=== PATIENT | male | born 1995 | race Two or more races ===

== ENCOUNTER 2025-04-01 13:33 | Inpatient (IN) | payer MEDICAID, SELFPAY ==
[2025-04-01] VITALS (10 sets, daily range): BP systolic 131–171; BP diastolic 72–117; PULSE 83–110; RESP 17–35; TEMP 36.7–37.7; O2SAT 96–100; BMI 29.0
--- NOTE | 2025-04-01 13:36 | PD.EDNEURO ---
Neuro Symptoms Deficit-RME/HPI General Chief Complaint: Neuro Symptoms/Deficit Stated Complaint: BODY NUMBNESS Time Seen by Provider: 04/01/25 18:19 Arrival date/time: 04/01/25 13:33 Limitations: altered mental status RME / HPI RME / HPI Narrative: DR. GARCIA MAIN ED EVALUATION: 29-year-old male brought in by EMS from home and EMS states they received the call with an initial complaint of vomiting since this morning; however, when they arrived on scene the patient complained of new-onset inability to move his body after vaping at 10 AM. He states the vape was obtained from friends. EMS reported normal blood glucose. No trauma, paitent was found in bed; no cough, congestion, dysuria, or recent illness. On arrival, the patient is uncomfortable, diaphoretic, intermittently agitated, and has difficulty following commands. I spoke to his mother over the phone at 1355 hours. Mother reports no known allergies. Reports history of chronic body pain and past cholecystectomy. He was reportedly well yesterday after eating a burger, he went to sleep; mother is unaware of what happened today. Per chart review notes prior history of cannabinoid hyperemesis and restlessness visits. Related Data Previous Rx's ?Medication ?Instructions ?Recorded ondansetron 4 mg disintegrating 4 mg PO Q6H PRN nausea and 04/03/25 tablet vomiting 14 days #14 tabs Allergies Allergy/AdvReac Type Severity Reaction Status Date / Time No Known Allergies Allergy Verified 05/02/24 07:14 Review of Systems Review of Systems Systems Reviewed: All systems reviewed, normal except as documented Past Medical History Past Medical History NEUROLOGIC: Positive Neurological Disorders, Seizures (per pt, has pseudoseizures ) and Migraine CARDIAC: Positive Cardiac Disorders and Hypertension GASTROINTESTINAL: Positive Gastrointestinal Disorders, Colitis and Hiatal Hernia PSYCHO/SOCIAL: Positive Depression and Anxiety Family History FAMILY HISTORY: Positive Family Gastrointestinal Problems Surgical History SURGICAL: Positive Abdominal Surgery Social History SMOKING STATUS: Current every day smoker SUBSTANCE USE: does not use ED Exam General Limitations: Present altered mental status General appearance: Present other (Patient looks uncomfortable, agitated, and is diaphoretic; he is wiggling in gurney, intermittently follows commands. No focal trauma appreciated.) Head Head exam: Present atraumatic, normocephalic and normal inspection Eye Eye exam: Present normal appearance, PERRL and EOMI ENT ENT exam: Present normal exam, normal oropharynx and mucous membranes moist Neck Neck exam: Present normal inspection, full ROM and trachea midline Chest Chest inspection: Present normal inspection and symmetric chest wall rise Respiratory Respiratory exam: Present normal lung sounds bilaterally Cardiovascular Cardiovascular exam: Present regular rate, normal rhythm and normal heart sounds Abdominal Exam Abdominal exam: Present soft; Absent distention, tenderness, guarding, rebound or rigidity Extremities Exam Extremities exam: Present normal inspection and full ROM Neurological Exam Neurological exam: Present other (Patient is wiggling in gurney, intermittently follows commands. Downward toes with plantar stimulation. ) Psychiatric Psychiatric exam: Present agitated Skin Skin exam: Present warm, dry, intact and normal color Course Quality Measures none Orders Category Date Time Status Admit to Inpatient Status Routine Admission 04/02/25 00:20 Active Patient Condition Routine Admission 04/02/25 00:20 Ordered COVID-19 Screening Questionnaire NOW Care 04/01/25 23:12 Completed Coil Cleaner Q4H START 00 Care 04/01/25 14:04 Completed Continuous Pulse Oximetry NOW Care 04/02/25 00:19 Completed Decision to Admit X1 Care 04/01/25 23:12 Completed EKG (ED ONLY) *Do not use* NOW Care 04/01/25 13:49 Completed Flu & Pneumonia Vaccine Screen ONCE Care 04/02/25 00:19 Completed Miscellaneous Nursing Order NOW Care 04/02/25 00:35 Completed Notify provider NEEDED Care 04/02/25 00:20 Completed Seizure precautions NOW Care 04/01/25 14:[address] head/brain wo con Stat Exams 04/01/25 13:41 Completed EKG (ED Only) Stat Exams 04/01/25 13:49 Ordered KUB [XR abdomen 1V] Stat Exams 04/02/25 00:23 Completed ABG [Arterial Blood Gas] Stat Lab 04/01/25 21:08 Completed Acetaminophen Stat Lab 04/01/25 13:55 Completed Alcohol, Blood Medical Stat Lab 04/01/25 13:55 Completed Ammonia Stat Lab 04/01/25 13:55 Completed BHB [Beta Hydroxybutyrate] Stat Lab 04/01/25 23:51 Completed CBC AM DRAW Lab 04/02/25 04:40 Completed CBC AM DRAW Lab 04/03/25 04:56 Completed CBC AM DRAW Lab 04/04/25 05:00 Completed CBC Stat Lab 04/01/25 13:55 Completed CK [Creatine Kinase] Stat Lab 04/01/25 13:55 Completed CMP [Comprehensive Metabolic Panel] Stat Lab 04/01/25 13:55 Completed CMP [Comprehensive Metabolic Panel] Stat Lab 04/01/25 20:24 Completed Comprehensive Metabolic Panel AM DRAW Lab 04/02/25 04:40 Completed Comprehensive Metabolic Panel AM DRAW Lab 04/03/25 04:56 Completed Comprehensive Metabolic Panel AM DRAW Lab 04/04/25 05:00 Completed Creatine Kinase Routine Lab 04/02/25 04:40 Completed Drug Screen,Urine Stat Lab 04/01/25 14:52 Completed Electrolytes, Urine Random Stat Lab 04/04/25 20:12 Completed Magnesium AM DRAW Lab 04/02/25 04:40 Completed Magnesium AM DRAW Lab 04/03/25 04:56 Completed Magnesium AM DRAW Lab 04/04/25 05:00 Completed Magnesium Stat Lab 04/01/25 20:24 Completed Phosphorous AM DRAW Lab 04/03/25 04:56 Completed Phosphorous AM DRAW Lab 04/04/25 05:00 Completed Phosphorous AM DRAW Lab 04/05/25 04:49 Completed Salicylate Stat Lab 04/01/25 13:55 Completed T4 (Thyroxine) Stat Lab 04/01/25 13:55 Completed TSH [Thyroid Stimulating Hormone] Stat Lab 04/01/25 13:55 Completed Troponin I Stat Lab 04/01/25 20:24 Completed UA, C/S IF [Urinalysis, C/S if Indicated] Stat Lab 04/01/25 14:52 Completed Acetaminophen Tab [Tylenol Tab] Med 04/02/25 00:19 Discontinued 650 mg PO Q6H PRN Acetaminophen Tab [Tylenol Tab] Med 04/02/25 00:19 Discontinued 650 mg PO Q6H PRN Dexmedetomidine 400 Mcg Ivpb [Precedex Ivpb] Med 04/01/25 14:46 Discontinued 400 mcg in 100 ml IV 0.2 mcg/kg/hr Diazepam Inj [Valium Inj] Med 04/01/25 20:16 Discontinued 10 mg IVP X1 ONE DiphenhydrAMINE INJ [Benadryl Inj] Med 04/01/25 13:53 Discontinued 25 mg IVP X1 ONE DiphenhydrAMINE INJ [Benadryl Inj] Med 04/01/25 14:10 Discontinued 25 mg IVP X1 ONE DiphenhydrAMINE INJ [Benadryl Inj] Med 04/01/25 20:16 Discontinued 50 mg IVP X1 STA Haloperidol Lactate [Haldol Inj] Med 04/01/25 13:53 Discontinued 5 mg IM X1 ONE Heparin Inj Med 04/02/25 06:00 Discontinued 5,000 unit SC Q8HR LORazepam [Ativan] Med 04/02/25 00:34 Discontinued 2 mg PO Q6HR PRN LORazepam [Ativan] Med 04/02/25 00:26 Discontinued 2 mg PO Q8HR PRN Metoclopramide Inj [Reglan Inj] Med 04/02/25 00:26 Discontinued 10 mg IVP Q6HR PRN Metoclopramide [Reglan] Med 04/02/25 00:35 Discontinued 5 mg PO Q6HR PRN Metoprolol Tartrate Inj [Lopressor Inj] Med 04/01/25 18:49 Discontinued 5 mg IVP X1 ONE Midazolam Inj [Versed Inj] Med 04/01/25 13:39 Discontinued 2 mg IVP X1 ONE Midazolam Inj [Versed Inj] Med 04/01/25 14:10 Discontinued 2 mg IVP X1 ONE Midazolam Inj [Versed Inj] Med 04/01/25 16:51 Discontinued 2 mg IVP X1 ONE Midazolam Inj [Versed Inj] Med 04/01/25 14:13 Discontinued 4 mg IVP X1 ONE Midazolam Inj [Versed Inj] Med 04/01/25 14:33 Discontinued 4 mg IVP X1 ONE Midazolam Inj [Versed Inj] Med 04/01/25 16:51 Discontinued 4 mg IVP X1 ONE Ondansetron Inj [Zofran Inj] Med 04/02/25 00:24 Discontinued 4 mg IVP Q6HR PRN Ondansetron Inj [Zofran Inj] Med 04/01/25 13:49 Discontinued 4 mg IVP X1 ONE Ondansetron Inj [Zofran Inj] Med 04/01/25 20:16 Discontinued 4 mg IVP X1 ONE POTASSIUM CHL 10 mEq IVPB [Kcl Ivpb] Med 04/01/25 20:33 Discontinued 10 meq in 100 ml IV X1 POTASSIUM CHL 10 mEq IVPB [Kcl Ivpb] Med 04/01/25 20:34 Discontinued 10 meq in 100 ml IV X1 Pantoprazole [Protonix] Med 04/02/25 09:00 Discontinued 40 mg PO QDAY Potassium Chloride [K-Dur] Med 04/01/25 20:07 Discontinued 40 meq PO X1 ONE Ringers Lactated 1000 ml [Lactated Ringers] 1,000 ml Med 04/01/25 20:16 Discontinued IV 1,000 mls/hr Ringers Lactated 1000 ml [Lactated Ringers] 1,000 ml Med 04/01/25 13:41 Discontinued IV 999 mls/hr Ringers Lactated 1000 ml [Lactated Ringers] 1,000 ml Med 04/02/25 00:23 Discontinued IV 999 mls/hr Ringers Lactated 1000 ml [Lactated Ringers] 1,000 ml Med 04/02/25 00:26 Discontinued IV 999 mls/hr Senna [Senokot] Med 04/02/25 09:00 Discontinued 1 tab PO QDAY hydrALAZINE INJ [Apresoline Inj] Med 04/01/25 21:04 Discontinued 2 mg IVP X1 ONE hydrALAZINE INJ [Apresoline Inj] Med 04/01/25 21:04 Discontinued 20 mg IVP X1 ONE hydrOXYzine HCL [Atarax] Med 04/01/25 14:35 Discontinued 10 mg PO X1 ONE Code Status Routine Oth 04/02/25 00:19 Completed Referral Tree Specialist NOW 04/02/25 00:30 Completed Vital Signs Vital signs: Vital Signs Pulse Rate 96 04/01/25 13:38 Respiratory Rate 25 H 04/01/25 13:38 Blood Pressure 131/72 H 04/01/25 13:38 Pulse Oximetry (%) 96 04/01/25 13:38 Oxygen Delivery Method Room Air 04/01/25 13:38 Neuro Symptoms / Deficit MDM Narrative MDM Narrative:: Patient is a 29 yo male with hx of polysubst use taht is in the ED, with confusion. VS and exam as listed. Patient placed in resus room, IV access obtained. Patiuent provided medication for anxiolysis. COnc for intox, intracranial hemorrhage, metabolic dist among others. Ordered labs, ekg, cxr and head ct. Also ordered xr of the abdomen given patient also concerned for constipa. I spoke to his mother over the phone at 1355 hours. Mother reports no known allergies. Reports history of chronic body pain and past cholecystectomy. He was reportedly well yesterday after eating a burger, he went to sleep; mother is unaware of what happened today. Per chart review notes prior history of cannabinoid hyperemesis and restlessness visits. Labs with evidence of leukocytosis 16, left shift of 89%, otherwise no other acute hematologic abnormalities. Patient with hypokalemia potassium 3.1 will replete IV. No other acute electrolyte abnormalities. No transaminitis, patient with mild elevation in CK3 14 fluids were provided. Ammonia level not elevated. Patient with low TSH and normal T4. Alcohol level normal, Tylenol and salicylate level not elevated. Patient required multiple doses of benzodiazepines and agitated, anxious, restless. Drug screen positive for cocaine, marijuana. Also positive for benzodiazepines however we provided the patient with benzodiazepines in the emergency department 4:43p on reevaluation patient calm, resting comfortably in bed, his partner is at his bedside. CT brain unremarkeable. Re-evaluated patient, again agitated. Requiring multipl doses of anxiolytics. Signed out to oncoming provider Stephanie Laurent, am scribing for and in the presence of Dr. Garcia. Patient data External records reviewed:: [facility] previous records and EMS form Clinical information provided by:: patient and EMS Social determinants that could affect healthcare access:: substance use Patient has the following chronic illnesses:: Mother reports history of chronic body pain, past cholecystectomy, and no known allergies. Per chart review notes prior history of cannabinoid hyperemesis and restlessness visits. History of vaping. How is presenting disease/condition affected by chronic disease/condition?: exacerbated by Evaluation data The following diagnostics were reviewed and interpreted by me:: lab results, radiology exam(s) and EKG tracing(s) (My interpretation: EKG performed at 1344 hours, sinus tachycardia, rate 102, normal intervals, non specific T wave changes, not a cardiac alert) Lab and/or radiology exams considered but not ordered:: none Interpretation Summary: See MDM narrative above. Medications / Prescriptions Medications or Prescriptions considered but not ordered:: none Medication administrations:: Medication Administration History Discontinued Medications Acetaminophen (Acetaminophen 325 Mg Tablet) 650 mg PO Q6H PRN PRN Reason: Fever >100.4 Stop: 05/02/25 00:18 Acetaminophen (Acetaminophen 325 Mg Tablet) 650 mg PO Q6H PRN PRN Reason: PAIN SCALE 1-3 (mild Stop: 05/02/25 00:18 Last Admin: 04/02/25 04:01 Dose: 650 mg Documented By: SHERI Buspirone HCl (Buspirone Hcl 5 Mg Tablet) 5 mg PO BID [facility] Stop: 05/03/25 14:59 Last Admin: 04/03/25 14:53 Dose: 5 mg Documented By: SC Capsaicin (Capsaicin Cr 60 Gm Tube) 0 gm TOP QID [facility] Stop: 05/02/25 11:59 Last Admin: 04/05/25 11:24 Dose: Not Given Documented By: ROQUE Non-Admin Reason: Patient Refused Admin: 04/05/25 06:14 Dose: Not Given Documented By: ENRIQUE Non-Admin Reason: Patient Refused Admin: 04/04/25 21:37 Dose: Not Given Documented By: ARETHA Non-Admin Reason: Medication Not Available Admin: 04/04/25 17:25 Dose: Not Given Documented By: VL Non-Admin Reason: Medication Not Available Admin: 04/04/25 11:19 Dose: Not Given Documented By: VL Non-Admin Reason: Medication Not Available Admin: 04/04/25 05:27 Dose: Not Given Documented By: GG Non-Admin Reason: Medication Not Available Admin: 04/03/25 21:37 Dose: Not Given Documented By: GG Non-Admin Reason: Medication Not Available Admin: 04/03/25 17:00 Dose: Not Given Documented By: GE Non-Admin Reason: Patient Refused Admin: 04/03/25 13:55 Dose: Not Given Documented By: SC Non-Admin Reason: not appropriate pt too agitated Admin: 04/03/25 05:16 Dose: Not Given Documented By: [email or web address] Non-Admin Reason: Patient Refused Admin: 04/02/25 21:07 Dose: 1 applicatio Documented By: Admin: 04/02/25 17:16 Dose: 1 applicatio Documented By: Admin: 04/02/25 11:35 Dose: 1 applicatio Documented By: TENA Clonazepam (Clonazepam 0.5 Mg Tablet) 1 mg PO X1 ONE Stop: 04/03/25 12:49 Last Admin: 04/03/25 12:52 Dose: 1 mg Documented By: SC Phenobarbital Sodium 260 mg/ (Sodium Chloride 12 ml) 0 mg IVP X1 ONE Stop: 04/03/25 15:50 Last Admin: 04/03/25 15:54 Dose: 260 mg Documented By: GE Phenobarbital Sodium 130 mg/ (Sodium Chloride 12 ml) 0 mg IVP X1 ONE Stop: 04/03/25 16:15 Last Admin: 04/03/25 16:26 Dose: 130 mg Documented By: GE Phenobarbital Sodium 130 mg/ (Sodium Chloride 12 ml) 0 mg IVP X1 ONE Stop: 04/03/25 16:48 Last Admin: 04/03/25 16:53 Dose: 130 mg Documented By: GE Phenobarbital Sodium 130 mg/ (Sodium Chloride 12 ml) 0 mg IVP X1 ONE Stop: 04/03/25 17:03 Last Admin: 04/04/25 01:52 Dose: Not Given Documented By: AD Non-Admin Reason: Discontinued Phenobarbital Sodium 130 mg/ (Sodium Chloride 12 ml) 0 mg IVP X1 ONE Stop: 04/03/25 20:00 Last Admin: 04/03/25 20:10 Dose: 130 mg Documented By: GG Diazepam (Diazepam Inj 5 Mg/Ml Vial 2 Ml) 10 mg IVP X1 ONE Stop: 04/01/25 20:17 Last Admin: 04/01/25 20:22 Dose: 10 mg Documented By: BD Diazepam (Diazepam Inj 5 Mg/Ml Vial 2 Ml) 2.5 mg IV Q12H PRN PRN Reason: ANXIETY Stop: 04/07/25 09:45 Diazepam (Diazepam Inj 5 Mg/Ml Vial 2 Ml) 2.5 mg IV X1 ONE Stop: 04/02/25 10:15 Last Admin: 04/02/25 11:34 Dose: 2.5 mg Documented By: XIGISSEL Diazepam (Diazepam Inj 5 Mg/Ml Vial 2 Ml) 2.5 mg IVP Q2HR PRN PRN Reason: CIWA SCORE 8-13 Stop: 04/08/25 15:15 Last Admin: 04/05/25 06:28 Dose: 2.5 mg Documented By: [email or web address] Admin: 04/04/25 21:31 Dose: 2.5 mg Documented By: Admin: 04/04/25 17:31 Dose: 2.5 mg Documented By: Admin: 04/04/25 14:08 Dose: 2.5 mg Documented By: Admin: 04/03/25 15:23 Dose: 2.5 mg Documented By: REJI Diazepam (Diazepam Inj 5 Mg/Ml Vial 2 Ml) 5 mg IVP Q2HR PRN PRN Reason: CIWA SCORE 14-19 Stop: 04/08/25 15:15 Last Admin: 04/03/25 19:51 Dose: 5 mg Documented By: AUGUSTA Diazepam (Diazepam Inj 5 Mg/Ml Vial 2 Ml) 10 mg IVP Q2HR PRN PRN Reason: CIWA SCORE 20-25 Stop: 04/08/25 15:15 Last Admin: 04/03/25 20:25 Dose: 10 mg Documented By: Admin: 04/03/25 17:04 Dose: 10 mg Documented By: GE Diazepam (Diazepam Inj 5 Mg/Ml Vial 2 Ml) 10 mg IVP X1 PRN PRN Reason: Breakthrough Agitation Last Admin: 04/03/25 16:20 Dose: 10 mg Documented By: AMADOR Diazepam (Diazepam Inj 5 Mg/Ml Vial 2 Ml) 0.5 mg IVP Q2HR PRN PRN Reason: CIWA 1-7 Stop: 04/03/25 16:01 Diazepam (Diazepam Inj 5 Mg/Ml Vial 2 Ml) 5 mg IVP X1 ONE Stop: 04/03/25 15:38 Last Admin: 04/03/25 15:45 Dose: 5 mg Documented By: SC Diphenhydramine HCl (Diphenhydramine Inj 50 Mg/Ml Vial) 25 mg IVP X1 ONE Stop: 04/01/25 13:54 Last Admin: 04/01/25 14:02 Dose: 25 mg Documented By: KM Diphenhydramine HCl (Diphenhydramine Inj 50 Mg/Ml Vial) 25 mg IVP X1 ONE Stop: 04/01/25 14:11 Last Admin: 04/01/25 14:15 Dose: 25 mg Documented By: KM Diphenhydramine HCl (Diphenhydramine Inj 50 Mg/Ml Vial) 50 mg IVP X1 STA Stop: 04/01/25 20:17 Last Admin: 04/01/25 20:22 Dose: 50 mg Documented By: BD Diphenhydramine HCl (Diphenhydramine Inj 50 Mg/Ml Vial) 25 mg IVP X1 ONE Stop: 04/03/25 13:41 Last Admin: 04/03/25 13:46 Dose: 25 mg Documented By: SC Diphenhydramine HCl (Diphenhydramine Inj 50 Mg/Ml Vial) 25 mg IVP X1 ONE Stop: 04/03/25 20:49 Last Admin: 04/04/25 01:52 Dose: Not Given Documented By: RUEL Non-Admin Reason: Discontinued Diphenhydramine HCl (Diphenhydramine Inj 50 Mg/Ml Vial) 50 mg IVP X1 ONE Stop: 04/03/25 20:57 Last Admin: 04/03/25 21:21 Dose: 50 mg Documented By: AUGUSTA Haloperidol Lactate (Haloperidol Lact Inj 5 Mg/Ml Vial) 5 mg IM X1 ONE Stop: 04/01/25 13:54 Last Admin: 04/01/25 14:00 Dose: 5 mg Documented By: KARTHIK Haloperidol Lactate (Haloperidol Lact Inj 5 Mg/Ml Vial) 5 mg IM X1 ONE Stop: 04/03/25 20:47 Last Admin: 04/03/25 21:21 Dose: 5 mg Documented By: AUGUSTA Haloperidol Lactate (Haloperidol Lact Inj 5 Mg/Ml Vial) Confirm Administered Dose 5 mg .ROUTE .STK-MED ONE Stop: 04/03/25 20:49 Last Admin: 04/03/25 21:19 Dose: Not Given Documented By: AUGUSTA Non-Admin Reason: Duplicate Medication on eMAR Heparin Sodium (Porcine) (Heparin Sod Inj 5000 Unit/Ml Vial) 5,000 unit SC Q8HR GINNY Stop: 04/16/25 05:59 Last Admin: 04/05/25 06:28 Dose: 5,000 unit Documented By: ENRIQUE Co-signed By: JAY Admin: 04/04/25 21:34 Dose: 5,000 unit Documented By: ARETHA Co-signed By: ILANA Admin: 04/04/25 14:20 Dose: 5,000 unit Documented By: [email or web address] Co-signed By: SHEREE Admin: 04/04/25 05:27 Dose: 5,000 unit Documented By: AUGUSTA Co-signed By: RUEL Admin: 04/03/25 21:37 Dose: 5,000 unit Documented By: AUGUSTA Co-signed By: RUEL Admin: 04/03/25 14:06 Dose: Not Given Documented By: SC Non-Admin Reason: Patient Refused Admin: 04/03/25 05:15 Dose: 5,000 unit Documented By: SHERI Co-signed By: Admin: 04/02/25 21:05 Dose: 5,000 unit Documented By: SHERI Co-signed By: Admin: 04/02/25 13:41 Dose: 5,000 unit Documented By: TENA Co-signed By: EDGAR Admin: 04/02/25 05:04 Dose: 5,000 unit Documented By: FERN Co-signed By: SHERI Hydralazine HCl (Hydralazine Inj 20 Mg/Ml Vial) 2 mg IVP X1 ONE Stop: 04/01/25 21:05 Hydralazine HCl (Hydralazine Inj 20 Mg/Ml Vial) 20 mg IVP X1 ONE Stop: 04/01/25 21:05 Last Admin: 04/01/25 21:38 Dose: 20 mg Documented By: ESTELA Hydroxyzine HCl (Hydroxyzine Hcl 10 Mg Tablet) 10 mg PO X1 ONE Stop: 04/01/25 14:36 Last Admin: 04/01/25 15:44 Dose: Not Given Documented By: KARTHIK Non-Admin Reason: Cancelled by Provider Hydroxyzine HCl (Hydroxyzine Inj 25 Mg/Ml Vial) 25 mg IM Q6HR PRN PRN Reason: ANXIETY Stop: 05/02/25 17:59 Hydroxyzine HCl (Hydroxyzine Hcl 25 Mg Tablet) 25 mg PO X1 ONE Stop: 04/03/25 12:14 Last Admin: 04/03/25 12:30 Dose: 25 mg Documented By: SC Hydroxyzine HCl (Hydroxyzine Hcl 25 Mg Tablet) 25 mg PO BID GINNY Stop: 05/03/25 20:59 Lactated Ringer's (Lactated Ringers) 1,000 mls @ 999 mls/hr IV .Q1H1M ONE Stop: 04/01/25 14:41 Last Infusion: 04/01/25 15:00 Dose: Infused Documented By: Admin: 04/01/25 13:55 Dose: 999 mls/hr Documented By: KARTHIK Dexmedetomidine/Sodium Chloride (Precedex Ivpb) 400 mcg in 100 mls @ 4.196 mls/hr IV .[id number] PRN; Protocol PRN Reason: Per PROTOCOL Stop: 05/01/25 14:45 Lactated Ringer's (Lactated Ringers) 1,000 mls @ 1,000 mls/hr IV .Q1H STA Stop: 04/01/25 21:15 Last Infusion: 04/01/25 21:04 Dose: Infused Documented By: Admin: 04/01/25 20:23 Dose: 1,000 mls/hr Documented By: BD Potassium Chloride (Kcl Ivpb) 10 meq in 100 mls @ 100 mls/hr IV X1 ONE Stop: 04/01/25 21:32 Last Admin: 04/01/25 21:04 Dose: Not Given Documented By: BD Non-Admin Reason: Cancelled by Provider Potassium Chloride (Kcl Ivpb) 10 meq in 100 mls @ 100 mls/hr IV X1 ONE Stop: 04/01/25 21:33 Last Infusion: 04/01/25 21:54 Dose: Infused Documented By: Admin: 04/01/25 21:00 Dose: 100 mls/hr Documented By: BD Lactated Ringer's (Lactated Ringers) 1,000 mls @ 999 mls/hr IV .Q1H1M ONE Stop: 04/02/25 01:23 Last Infusion: 04/02/25 02:14 Dose: Infused Documented By: Admin: 04/02/25 01:19 Dose: 999 mls/hr Documented By: BD Lactated Ringer's (Lactated Ringers) 1,000 mls @ 999 mls/hr IV .Q1H1M ONE Stop: 04/02/25 01:26 Last Infusion: 04/02/25 02:14 Dose: Infused Documented By: Admin: 04/02/25 01:19 Dose: 999 mls/hr Documented By: BD Potassium Chloride (Kcl Ivpb) 10 meq in 100 mls @ 100 mls/hr IV Q1H GINNY Stop: 04/02/25 10:39 Last Admin: 04/02/25 11:34 Dose: 100 mls/hr Documented By: Infusion: 04/02/25 10:59 Dose: Infused Documented By: Admin: 04/02/25 09:59 Dose: 100 mls/hr Documented By: Infusion: 04/02/25 09:51 Dose: Infused Documented By: Admin: 04/02/25 08:51 Dose: 100 mls/hr Documented By: TENA Magnesium Sulfate (Magnesium Sulfate Ivpb) 2 gm in 50 mls @ 25 mls/hr IV X1 ONE Stop: 04/02/25 09:41 Last Admin: 04/02/25 08:47 Dose: 25 mls/hr Documented By: TENA Acetaminophen (Ofirmev Inj) 1,000 mg in 100 mls @ 250 mls/hr IV Q6HR PRN PRN Reason: Pain 1-8 Stop: 04/03/25 06:23 Last Infusion: 04/02/25 19:00 Dose: Infused Documented By: Admin: 04/02/25 13:58 Dose: 250 mls/hr Documented By: TENA Lactated Ringer's (Lactated Ringers) 1,000 mls @ 999 mls/hr IV .Q1H1M ONE Stop: 04/02/25 14:47 Last Admin: 04/02/25 13:59 Dose: 999 mls/hr Documented By: TENA Potassium Phosphate (Pot Phos 15 Mmol In Ns 250 Ml) 15 mmol in 250 mls @ 62.5 mls/hr IV Q4H ONE Stop: 04/02/25 19:21 Last Admin: 04/02/25 15:58 Dose: 62.5 mls/hr Documented By: TENA Potassium Chloride (Kcl Ivpb) 20 meq in 100 mls @ 50 mls/hr IV X1 ONE Stop: 04/02/25 17:21 Last Admin: 04/04/25 01:54 Dose: Not Given Documented By: RUEL Non-Admin Reason: Discontinued Potassium Chloride (Kcl Ivpb) 100 mls @ 100 mls/hr IV Q1H GINNY Stop: 04/02/25 17:29 Last Admin: 04/02/25 17:14 Dose: 80 mls/hr Documented By: Infusion: 04/02/25 17:13 Dose: Infused Documented By: Admin: 04/02/25 15:58 Dose: 80 mls/hr Documented By: TENA Dexmedetomidine/Sodium Chloride (Precedex Ivpb) 400 mcg in 100 mls @ 4.196 mls/hr IV .[id number] PRN; Protocol PRN Reason: Per PROTOCOL Stop: 05/03/25 20:35 Last Titration: 04/04/25 05:00 Dose: 0 mcg/kg/hr, 0 mls/hr Documented By: Titration: 04/04/25 04:30 Dose: 0.2 mcg/kg/hr, 4.196 mls/hr Documented By: Titration: 04/04/25 04:00 Dose: 0.4 mcg/kg/hr, 8.392 mls/hr Documented By: Titration: 04/04/25 03:00 Dose: 0.4 mcg/kg/hr, 8.392 mls/hr Documented By: Admin: 04/04/25 02:00 Dose: 0.4 mcg/kg/hr, 8.392 mls/hr Documented By: AUGUSTA Co-signed By: RUEL Titration: 04/04/25 02:00 Dose: Infused Documented By: AUGUSTA Co-signed By: RUEL Titration: 04/04/25 01:00 Dose: 0.4 mcg/kg/hr, 8.392 mls/hr Documented By: Titration: 04/04/25 00:00 Dose: 0.4 mcg/kg/hr, 8.392 mls/hr Documented By: Titration: 04/03/25 23:00 Dose: 0.6 mcg/kg/hr, 12.587 mls/hr Documented By: Titration: 04/03/25 22:30 Dose: 0.8 mcg/kg/hr, 16.783 mls/hr Documented By: Titration: 04/03/25 22:00 Dose: 1 mcg/kg/hr, 20.979 mls/hr Documented By: Titration: 04/03/25 21:30 Dose: 1.2 mcg/kg/hr, 25.175 mls/hr Documented By: Titration: 04/03/25 21:00 Dose: 1.4 mcg/kg/hr, 29.37 mls/hr Documented By: Admin: 04/03/25 20:43 Dose: 1.4 mcg/kg/hr, 29.37 mls/hr Documented By: AUGUSTA Co-signed By: CARLOS ENRIQUE Lactated Ringer's (Lactated Ringers) 1,000 mls @ 999 mls/hr IV .Q1H1M ONE Stop: 04/03/25 23:17 Last Infusion: 04/03/25 23:30 Dose: Infused Documented By: Admin: 04/03/25 22:28 Dose: 999 mls/hr Documented By: AUGUSTA Lactated Ringer's (Lactated Ringers) 500 mls @ 80 mls/hr IV .[id number] ONE Stop: 04/04/25 04:32 Last Infusion: 04/04/25 06:00 Dose: Infused Documented By: Admin: 04/03/25 23:37 Dose: 80 mls/hr Documented By: AUGUSTA Lactated Ringer's (Lactated Ringers) 500 mls @ 999 mls/hr IV .Q31M ONE Stop: 04/04/25 05:40 Last Infusion: 04/04/25 06:00 Dose: Infused Documented By: Admin: 04/04/25 05:28 Dose: 999 mls/hr Documented By: AUGUSTA Lactated Ringer's (Lactated Ringers) 1,000 mls @ 999 mls/hr IV .Q1H1M ONE Stop: 04/04/25 08:30 Last Infusion: 04/04/25 19:21 Dose: Infused Documented By: Admin: 04/04/25 07:32 Dose: 999 mls/hr Documented By: SRINIVASA Lactated Ringer's (Lactated Ringers) 1,000 mls @ 999 mls/hr IV .Q1H1M ONE Stop: 04/04/25 11:51 Last Infusion: 04/04/25 19:21 Dose: Infused Documented By: Admin: 04/04/25 10:55 Dose: 999 mls/hr Documented By: SRINIVASA Potassium Chloride (Kcl Ivpb) 10 meq in 100 mls @ 100 mls/hr IV Q1H GINNY Stop: 04/05/25 12:01 Last Admin: 04/05/25 10:53 Dose: 100 mls/hr Documented By: Infusion: 04/05/25 10:49 Dose: Infused Documented By: Admin: 04/05/25 09:49 Dose: 100 mls/hr Documented By: Infusion: 04/05/25 09:49 Dose: Infused Documented By: Admin: 04/05/25 09:02 Dose: 100 mls/hr Documented By: ROQUE Influenza Virus Vaccine Quadrival (Influenza Virus Quadrivalent 0.5 Ml Syringe) 0.5 ml IMi .ONCE ONE Stop: 04/02/25 04:53 Lactulose (Lactulose Syrup 20 Gm/30 Ml Udc) 20 gm PO X1 ONE; Protocol Stop: 04/02/25 01:58 Last Admin: 04/02/25 02:10 Dose: Not Given Documented By: ESTELA Non-Admin Reason: Patient Refused Lorazepam (Lorazepam 0.5 Mg Tablet) 2 mg PO Q8HR PRN PRN Reason: ANXIETY Stop: 04/07/25 00:25 Lorazepam (Lorazepam 0.5 Mg Tablet) 2 mg PO Q6HR PRN PRN Reason: ANXIETY Stop: 04/07/25 00:25 Lorazepam (Lorazepam 0.5 Mg Tablet) 0.5 mg PO X1 ONE Stop: 04/03/25 08:21 Last Admin: 04/03/25 08:26 Dose: 0.5 mg Documented By: SC Losartan Potassium (Losartan Potassium 25 Mg Tablet) 25 mg PO QDAY GINNY Stop: 05/02/25 08:59 Last Admin: 04/02/25 08:51 Dose: 25 mg Documented By: TENA Melatonin (Melatonin 3 Mg Tablet) 3 mg PO HS [facility] Stop: 05/03/25 20:59 Metoclopramide HCl (Metoclopramide Inj 5 Mg/Ml Vial 2 Ml) 10 mg IVP Q6HR PRN; Protocol PRN Reason: NAUSEA OR VOMITING Stop: 05/02/25 00:25 Metoclopramide HCl (Metoclopramide 5 Mg Tablet) 5 mg PO Q6HR PRN PRN Reason: NAUSEA OR VOMITING Stop: 05/02/25 00:34 Metoclopramide HCl (Metoclopramide Inj 5 Mg/Ml Vial 2 Ml) 10 mg IVP Q6HR PRN; Protocol PRN Reason: NAUSEA OR VOMITING Stop: 05/02/25 09:34 Last Admin: 04/02/25 13:40 Dose: 10 mg Documented By: TENA Metoprolol Tartrate (Metoprolol Tartrate Inj 1 Mg/Ml Amp 5 Ml) 5 mg IVP X1 ONE Stop: 04/01/25 18:50 Last Admin: 04/01/25 19:44 Dose: 5 mg Documented By: ESTELA Midazolam HCl (Midazolam Inj 1 Mg/Ml Vial 2 Ml) 2 mg IVP X1 ONE Stop: 04/01/25 13:40 Last Admin: 04/01/25 13:54 Dose: 2 mg Documented By: KARTHIK Midazolam HCl (Midazolam Inj 1 Mg/Ml Vial 2 Ml) 2 mg IVP X1 ONE Stop: 04/01/25 14:11 Last Admin: 04/01/25 14:20 Dose: Not Given Documented By: KARTHIK Non-Admin Reason: Cancelled by Provider Midazolam HCl (Midazolam Inj 1 Mg/Ml Vial 2 Ml) 4 mg IVP X1 ONE Stop: 04/01/25 14:14 Last Admin: 04/01/25 14:21 Dose: 4 mg Documented By: KARTHIK Midazolam HCl (Midazolam Inj 1 Mg/Ml Vial 2 Ml) 4 mg IVP X1 ONE Stop: 04/01/25 14:34 Last Admin: 04/01/25 14:44 Dose: 4 mg Documented By: SAMIR Midazolam HCl (Midazolam Inj 1 Mg/Ml Vial 2 Ml) 2 mg IVP X1 ONE Stop: 04/01/25 16:52 Midazolam HCl (Midazolam Inj 1 Mg/Ml Vial 2 Ml) 4 mg IVP X1 ONE Stop: 04/01/25 16:52 Last Admin: 04/01/25 17:22 Dose: 4 mg Documented By: KARTHIK Nifedipine (Nifedipine 10 Mg Capsule) 10 mg PO X1 ONE Stop: 04/02/25 03:24 Last Admin: 04/04/25 01:53 Dose: Not Given Documented By: RUEL Non-Admin Reason: Discontinued Ondansetron HCl (Ondansetron Inj 2 Mg/Ml Inj 2 Ml) 4 mg IVP X1 ONE; Protocol Stop: 04/01/25 13:50 Last Admin: 04/01/25 14:01 Dose: 4 mg Documented By: KARTHIK Ondansetron HCl (Ondansetron Inj 2 Mg/Ml Inj 2 Ml) 4 mg IVP X1 ONE; Protocol Stop: 04/01/25 20:17 Last Admin: 04/01/25 20:22 Dose: 4 mg Documented By: ESTELA Ondansetron HCl (Ondansetron Inj 2 Mg/Ml Inj 2 Ml) 4 mg IVP Q6HR PRN; Protocol PRN Reason: NAUSEA OR VOMITING Stop: 05/02/25 00:23 Last Admin: 04/03/25 19:46 Dose: 4 mg Documented By: Admin: 04/03/25 12:24 Dose: 4 mg Documented By: Admin: 04/02/25 18:23 Dose: 4 mg Documented By: Admin: 04/02/25 10:00 Dose: 4 mg Documented By: Admin: 04/02/25 03:10 Dose: 4 mg Documented By: ESTELA Pantoprazole Sodium (Pantoprazole 40 Mg Tablet) 40 mg PO QDAY GINNY Stop: 05/02/25 08:59 Last Admin: 04/02/25 08:52 Dose: 40 mg Documented By: TENA Pantoprazole Sodium (Pantoprazole Inj 40 Mg Vial) 40 mg IVP QDAY GINNY Stop: 05/02/25 09:44 Last Admin: 04/02/25 10:00 Dose: 40 mg Documented By: TENA Pantoprazole Sodium (Pantoprazole 40 Mg Tablet) 40 mg PO QDAY GINNY Stop: 05/03/25 08:59 Last Admin: 04/05/25 09:02 Dose: 40 mg Documented By: Admin: 04/04/25 09:40 Dose: 40 mg Documented By: Admin: 04/03/25 08:26 Dose: 40 mg Documented By: SC Potassium Chloride (Potassium Chloride 20 Meq Tabcr) 40 meq PO X1 ONE Stop: 04/01/25 20:08 Last Admin: 04/01/25 20:53 Dose: Not Given Documented By: ESTELA Non-Admin Reason: Cancelled by Provider Sennosides (Senna Tablet) 1 tab PO QDAY GINNY; Protocol Stop: 05/02/25 08:59 Last Admin: 04/02/25 08:47 Dose: 1 tab Documented By: TENA see above Consultations Consultation(s) initiated? (list below): No Diagnosis Neuro Differential Diagnosis: other (Toxic ingestion (synthetic cannabinoid or adulterated vape), cannabinoid hyperemesis syndrome, and metabolic or neurologic event.) Most likely diagnosis given after review of the tests above:: No official diagnoses at this time, still pending diagnostic tests. Patient signout to the restaurant shift supervisor provider. Admission Indicated Admission indicated?: not indicated Explain why admission is indicated or not indicated:: No final disposition plan at this time, still pending diagnostic tests. Patient signout to the restaurant shift supervisor provider. Admission Request Was there a request for admission?: No Disposition Plan Disposition Plan: other (specify) (Patient signout to the restaurant shift supervisor provider. ) Critical Care Time Critical Care Time Critical Care Time: Yes Total Critical Care Time (min.): 60 Attestation: The high probability of sudden, clinically significant deterioration in the patient?s condition required the highest level of my preparedness to intervene urgently. The services I provided to this patient were to treat and/or prevent clinically significant deterioration. Services included the following: chart data review, reviewing nursing notes and/or old charts, documentation time, product safety consultant collaboration regarding findings and treatment options, medication orders and management, direct patient care, vital sign assessments and ordering, interpreting and reviewing diagnostic studies and lab tests. Aggregate critical care time includes only time during which I was engaged in work directly related to the patient?s care, as described above, whether at bedside or elsewhere in the Emergency Department. It did not include time spent performing other reported procedures or the services of residents, students, nurses or physician assistants. Discharge Plan Plan Patient Disposition: Admit Acute Care w/in Hospital Patient condition on transfer: Stable Problem List Clinical Impression: Altered mental state, Drug abuse, Rhabdomyolysis, Intractable vomiting, Hypokalemia
--- NOTE | 2025-04-01 13:41 | XR_ITS ---
Examination: CT brain head without contrast. 2-D sagittal coronal reconstructions Date and time of exam:April 01, 2025, 1439 hrs., Comparison November 30, 2018 Indications: Altered mental status today CTDI: vol (mGy):48 DLP: (mGycm):986 Technique: Multiple CT axial sections of the brain have been obtained, 5 mm slice thickness. Contrast has not been administered. 2-D sagittal, coronal reconstructions have been obtained Low dose protocols were performed. One or more of the following dose reduction techniques were used; automated exposure control, adjustment of the mA and/or KV according to patient size, use of iterative reconstruction technique. Findings: No significant ventricular enlargement. Intra-axial or extra-axial hemorrhage density is not seen. No mass effect or midline shift Basal cisterns are not remarkable. Fourth ventricle is midline. Cranial vault intact. Impression: Negative for acute hemorrhage, mass effect or midline shift
--- NOTE | 2025-04-01 13:48 | PC.NURSE ---
Patient to er via ems from home, with c/o vaping a pen from his friend , unknown substance, this am and vomiting, feeling numb, per family states he started vomiting approx, 1000am, patient taken to room 19, thrashing around in [facility], answering questions appropriately, skin is diaphoretic, and slightly pale, dr. cabezas at bedside, new orders received.
[2025-04-01] MEDS: MIDAZOLAM INJ 1 MG/ML VIAL 2 ML 2 MG IVP (13:54)
[2025-04-01] MEDS: RINGERS LACTATED 1000 ML 1,000 ML 999 ML IV (13:55)
[2025-04-01] MEDS: HALOPERIDOL LACT INJ 5 MG/ML VIAL IM (14:00)
[2025-04-01] MEDS: ONDANSETRON INJ 2 MG/ML INJ 2 ML 4 MG IVP ×2 (14:01→20:22)
[2025-04-01 14:03] LABS: Basophils # (Auto) 0.0 Thou/mm3 (0.0-0.2); Basophils % (Auto) 0 % (0-2.5); Eosinophils # (Auto) 0.0 Thou/mm3 (0.0-0.5); Eosinophils % (Auto) 0 % (0-10); Hematocrit 40.4 % (41.0-53.0); Hemoglobin 13.9 g/dL (13.5-16.0); Immature Granulocytes Auto 0.06 Thou/mm3 (0.00-0.00); Lymphocytes # (Auto) 1.1 Thou/mm3 (1.0-4.8); Lymphocytes % (Auto) 7 % (10-50); Mean Corpuscular HGB Conc 34.4 g/dl (31.0-37.0); Mean Corpuscular Hemoglobin 28.2 pg (25.0-35.0); Mean Corpuscular Volume 82 fL (80-100); Monocytes # (Auto) 0.6 Thou/mm3 (0.0-0.8); Monocytes % (Auto) 4 % (0-12); Neutrophils # (Auto) 14.4 Thou/mm3 (1.8-7.7); Neutrophils % (Auto) 89 % (37-80); Nucleated Red Blood Cell # 0.00 Thou/mm3 (0.00-0.00); Nucleated Red Blood Cell % 0 /100 WBC (0); Platelet Count 294 Thou/mm3 (140-440); RDW Standard Deviation 38.5 fL (35.1-43.9); Red Blood Count 4.93 Miln/mm3 (4.50-5.90); White Blood Count 16.2 Thou/mm3 (3.8-10.6)
--- NOTE | 2025-04-01 14:11 | PC.NURSE ---
Patient continues to thrash around in the [facility], seizure precautions in place, Dr. Garcia made aware and and came to bedside, new orders received.
[2025-04-01] MEDS: MIDAZOLAM INJ 1 MG/ML VIAL 2 ML 4 MG IVP ×3 (14:21→17:22)
--- NOTE | 2025-04-01 14:22 | PC.NURSE ---
Holding behavioral restraints for now, patient sleeping, VSS. Dr. Garcia made aware.
[2025-04-01 14:32] LABS: Ammonia 17 uMol/L (11-32)
[2025-04-01 14:36] LABS: T4 (Thyroxine) 9.9 mcg/dL (4.5-10.9)
[2025-04-01 14:43] LABS: Acetaminophen < 2.0 mcg/mL (10.0-20.0); Alanine Aminotransferase 17 U/L (10-49); Albumin, Serum 5.1 gm/dL (3.5-5.0); Albumin/Globulin Ratio 2.0 (1.2-2.2); Alcohol, Blood Medical < 3.0 mg/dL (0-10.0); Alkaline Phosphatase 86 U/L (46-116); Anion Gap 21 (7-16); Aspartate Amino Transferase 22 U/L (0-34); BUN/Creatinine Ratio 8 Ratio (12-20); Bilirubin,Total 0.6 mg/dL (0.3-1.2); Blood Urea Nitrogen 8 mg/dL (9-23); Calcium 9.8 mg/dL (8.3-10.6); Calcium (Corrected) 9.8 mg/dL (8.5-10.1); Carbon Dioxide 18.1 mMol/L (20.0-31.0); Chloride 103 mMol/L (98-107); Creatine Kinase 314 U/L (34-171); Creatinine (Component) 1.0 mg/dL (0.6-1.3); Estimated Creatinine Clearance 110.9 mL/min (>60); Globulin 2.5 gm/dL (2.3-3.5); Glucose 167 mg/dL (74-106); Osmolality,Calculated 285 (275-295); Potassium 3.1 mMol/L (3.4-5.1); Salicylate < 3.0 mg/dL; Sodium 142 mMol/L (136-145); Thyroid Stimulating Hormone 0.36 uIU/mL (0.55-4.78); Total Protein 7.6 gm/dL (5.7-8.2); eGFR > 60 See Note
[2025-04-01 15:05] LABS: Collection Type, Urine Catheter
[2025-04-01 15:17] LABS: Bilirubin,Urine Negative (Negative); Blood,Urine Negative (Negative); Clarity,Urine Clear (Clear/Hazy); Color,Urine Colorless (Lt Yel-Yel); Culture Indicated,Urine Not Indicated; Glucose, Urine 1+ (Negative); Ketones,Urine 3+ (Negative); Leukocyte Esterase,Urine Negative (Negative); Nitrite,Urine Negative (Negative); PH,Urine 8.0 (5.0-7.0); Protein,Urine Negative (Neg - Trace); RBC,Urine 5 /hpf (0-3); Specific Gravity,Urine 1.011 (1.001-1.035); Squamous Epithelial Cell,Urine < 1 /hpf (0-5); Urobilinogen,Urine Negative mg/dL (0.0-1.0); WBC,Urine 5 /hpf (0-5)
[2025-04-01 15:28] LABS: Amphetamine/Methamp Scrn,U Negative (Negative); Barbiturate Screen,Urine Negative (Negative); Benzodiazepines Screen,Urine Positive (Negative); Benzoylecgonine Screen, Ur Positive (Negative); Fentanyl Screen,Urine Negative (Negative); Opiate Screen,Urine Negative (Negative); THC Screen,Urine Positive (Negative)
--- NOTE | 2025-04-01 16:54 | PC.NURSE ---
Patient moving around in bed dry heaving, anxious, at bedside, Dr. Garcia is aware, new orders received.
--- NOTE | 2025-04-01 16:56 | PC.NURSE ---
Called Pharmacists to bring versed iv to er, none in our pyxis.
--- NOTE | 2025-04-01 18:24 | PD.EDADDENDU ---
Emergency Room Addendum <Karen Gomez - Last Filed: 04/01/25 23:19> Addendum Narrative: I took over the care from previous shift physician at 6 PM on 04/01/2025. See previous notes for complete H & P and ED course. I reviewed all diagnostic test results. My interpretation of the EKG is My review of the Head/Brain CT report is NAD. Blood tests and urine tests Diagnoses include: AMS Treatment here included Versed 4 mg Versed 2 mg Versed 4 mg Zofran 4 mg Zofran 4 mg Potassium Cl 40 meq KCl Ivpb 400 mg Ringer's Lactated 1 L Atarax 10 mg Apresoline 20 mg Apresoline 2 mg Haldol 5 mg Benadryl 50 mg Benadryl 25 mg Benadryl 25 mg Valium 10 mg 23:11 - I discussed the case with our hospitalist. About the presentation and exam and diagnostics and treatments here. And need of further care in the hospital. Will accept the patient. made decision no further evaluation or treatment indicated at this time. Patient understands and agrees to the discharge instructions customized and printed, see below. Mert Lorenzana MD <Mert Lorenzana MD - Last Filed: 04/01/25 23:58> Addendum Narrative: I took over the care from previous shift physician, Dr. Garcia, at 6 PM on 04/01/2025. See previous notes for complete H & P and ED course. I reviewed all diagnostic test results. Diagnoses include: AMS Drug abuse Rhabdomyolysis Intractable vomiting Hypokalemia 23:11 - I discussed the case with our hospitalist. About the presentation and exam and diagnostics and treatments here. And need of further care in the hospital. Will accept the patient. Mert Lorenzana MD
--- NOTE | 2025-04-01 18:49 | PC.NURSE ---
Dr. Lorenzana assumed care of patient made him aware patient bp 157/115.
[2025-04-01] MEDS: METOPROLOL TARTRATE INJ 1 MG/ML AMP 5 ML 5 MG IVP (19:44)
[2025-04-01] MEDS: DIAZEPAM INJ 5 MG/ML VIAL 2 ML 10 MG IVP (20:22)
[2025-04-01] MEDS: RINGERS LACTATED 1000 ML 1,000 ML IV (20:23)
--- NOTE | 2025-04-01 20:53 | PC.NURSE ---
pt could not tolerate po k+ will give iv per dr. yee
[2025-04-01] MEDS: POTASSIUM CHL 10 mEq IVPB 10 MEQ/100 ML BAG 100 MEQ IV (21:00)
--- NOTE | 2025-04-01 21:04 | PC.NURSE ---
notified dr. yee b/p 160/395
[2025-04-01 21:05] LABS: Alanine Aminotransferase 19 U/L (10-49); Albumin, Serum 5.5 gm/dL (3.5-5.0); Albumin/Globulin Ratio 2.0 (1.2-2.2); Alkaline Phosphatase 84 U/L (46-116); Anion Gap 26 (7-16); Aspartate Amino Transferase 28 U/L (0-34); BUN/Creatinine Ratio 8 Ratio (12-20); Bilirubin,Total 0.6 mg/dL (0.3-1.2); Blood Urea Nitrogen 9 mg/dL (9-23); Calcium 10.5 mg/dL (8.3-10.6); Calcium (Corrected) 10.5 mg/dL (8.5-10.1); Chloride 105 mMol/L (98-107); Creatinine (Component) 1.1 mg/dL (0.6-1.3); Estimated Creatinine Clearance 100.8 mL/min (>60); Globulin 2.7 gm/dL (2.3-3.5); Glucose 149 mg/dL (74-106); Magnesium 1.8 mg/dL (1.6-2.6); Osmolality,Calculated 284 (275-295); Potassium 3.2 mMol/L (3.4-5.1); Sodium 142 mMol/L (136-145); Total Protein 8.2 gm/dL (5.7-8.2); Troponin I < 0.002 ng/mL (0.0-0.045); eGFR > 60 See Note
[2025-04-01 21:14] LABS: Allen Test Performed/OK; Base Excess 0 (-3-3); HCO3 22 mEq/L (20-26); Inspired Oxygen, FIO2 21 %; O2 Saturation 99 % (91-98); PCO2 27 mmHg (32.0-48.0); PO2 103 mmHg (83-108); Puncture Site Right Radial; pH, Arterial 7.52 (7.35-7.45)
[2025-04-01 21:25] LABS: Carbon Dioxide 11.3 mMol/L (20.0-31.0)
[2025-04-01] MEDS: hydrALAZINE INJ 20 MG/ML VIAL IVP (21:38)
[2025-04-01 23:58] LABS: Beta Hydroxybutyrate 0.6 mmol/L (<0.6)
[2025-04-02] VITALS (8 sets, daily range): BP systolic 100–175; BP diastolic 59–110; PULSE 82–99; RESP 18–29; TEMP 36.1–37.7; O2SAT 95–100
--- NOTE | 2025-04-02 00:23 | XR_ITS ---
Examination: Abdomen AP single view Technique: AP portable supine abdomen, single view Exam date and time: April 02, 2025, 0042 hrs. Indications: Abdominal pain and vomiting today. Findings: Moderate stool throughout the colon. No obstruction. No free air. Surgical clips upper right abdomen The osseous structures are intact Impression: Nonobstructive bowel gas pattern
--- NOTE | 2025-04-02 00:40 | ESHP_ITS ---
Documentation for date of: 04/02/25 [facility] History of Present Illness Chief complaint: Multiple episode of Vomitings History of present illness: Patient is poor historian and thus history was limited. This is a 29 yr old Male with Past Medical History of Anxiety Presented to the ED with multiple approximately 10 episodes of vomiting for 1 day. He describes vomitus as bilious in nature . He denies any blood in vomiting or any abdominal pain. He had a hamburger and Jalapeno last night which he attributes his symptoms to. Patient has had previous admissions for similar symptoms attributed to his cannabis use. He denies fever, loss of appetite, shortness of breath ,urinary frequency. He denies melena and he not had a bowel moment since last 2 days. Patient was admitted for intractable nausea and vomiting with acid base disorders. ED Course: Vitals BP 131/72 mm Hg , MS 96bpm , saturating 96 on room air.Pertinent labs are WBC:16.2 . Neutrophils :89%. Sodium 142, Potassium:3.2 ,Chloride:105 ,ABG PH:7.52 , Pco2:27mm Hg ,HCo3:11.3. Total CK:314 , BHB:0.6 , TSH:0.36. Urine analysis : Ketones 3+.Head CT negative for any bleed. Urine Drug Screen positive for Benzos, Cocaine and Marijuana. Given Ringer lactate 2 litres, Hydralazine 20 mg & 2mg, Hydroxyzine:10mg, Haloperidol :5mg, Kcl :40Meq tab and in IV fluid, Midazolam Past Medical History: Anxiety for 10 years -takes Clonazepam Past surgical History: None Past social History: Denies alcohol but vapes Marijuana regularly. Family History:Non Contributory ROS: As stated above Review of Systems Review of Systems Systems Reviewed: All systems reviewed, normal except as documented Exam Vital Signs Temp Pulse Resp BP Pulse Ox O2 Del Method 99.2 F 106 H 17 158/110 H 100 Room Air 04/01/25 22:03 04/01/25 22:03 04/01/25 22:03 04/01/25 22:03 04/01/25 22:03 04/01/25 22:03 Narrative Exam Physical Exam GENERAL: NAD, AAOx3, lethargic, but easily arousable HEENT: Moist mucosa. Eyes open, symmetrical, & clear CARDIO: Heart RRR, no obvious murmurs PULM: No noted coughing/dyspnea CTA B/L, no R/W/R GI: Abdomen soft, nondistended, tender on Left upper and lower quadrants. BSx4 SKIN/MSK/EXT: No wounds/rashes/edema/amputations, no pain on palpation. Pedal pulses present B/L NEURO: AAOx3, no focal neuro deficits, able to move all 4 extremities Results: Labs 04/02/25 04:40 04/01/25 20:24 Labs: Short CBC 04/01/25 Range/Units 13:55 WBC 16.2 H (3.8-10.6) Thou/mm3 Hgb 13.9 (13.5-16.0) g/dL Hct 40.4 L (41.0-53.0) % Plt Count 294 (140-440) Thou/mm3 BMP 04/01/25 04/01/25 13:55 20:24 Sodium 142 142 Potassium 3.1 L 3.2 L Chloride 103 105 Carbon Dioxide 18.1 L 11.3 L* BUN 8 L 9 Creatinine 1.0 1.1 Glucose 167 H 149 H Calcium 9.8 10.5 Cardiac Enzymes 04/01/25 04/01/25 Range/Units 13:55 20:24 Total Creatine Kinase 314 H (34-171) U/L Troponin I < 0.002 (0.0-0.045) ng/mL Liver Function 04/01/25 04/01/25 Range/Units 13:55 20:24 Total Bilirubin 0.6 0.6 (0.3-1.2) mg/dL AST 22 28 (0-34) U/L ALT 17 19 (10-49) U/L Alkaline Phosphatase 86 84 (46-116) U/L Albumin 5.1 H 5.5 H (3.5-5.0) gm/dL Urine 04/01/25 Range/Units 14:52 Urine Color Colorless A (Lt Yel-Yel) Urine Clarity Clear (Clear/Hazy) Urine pH 8.0 H (5.0-7.0) Ur Specific [place] 1.011 (1.001-1.035) Urine Protein Negative (Neg - Trace) Urine Glucose (UA) 1+ A (Negative) ABG Interpretation ABG results: 04/01/25 21:08 ABG pH 7.52 H ABG pCO2 27 L ABG pO2 103 ABG HCO3 22 ABG O2 Saturation 99 H ABG Base Excess 0 Quality Measures Quality Measures VTE prophylaxis Medications Home Medications and Allergies Home Medications ?Medication ?Instructions ?Recorded ?Confirmed ?Type clonazepam 1 mg tablet 1 mg PO BID 04/02/25 5 History Allergies Allergy/AdvReac Type Severity Reaction Status Date / Time No Known Allergies Allergy Verified 05/02/24 07:14 Visit Medications Acetaminophen (Acetaminophen 325 Mg Tablet) 650 mg PO Q6H PRN PRN Reason: Fever >100.4 Stop: 05/02/25 00:18 Acetaminophen (Acetaminophen 325 Mg Tablet) 650 mg PO Q6H PRN PRN Reason: PAIN SCALE 1-3 (mild Stop: 05/02/25 00:18 Heparin Sodium (Porcine) (Heparin Sod Inj 5000 Unit/Ml Vial) 5,000 unit SC Q8HR GINNY Stop: 04/16/25 05:59 Dexmedetomidine/Sodium Chloride (Precedex Ivpb) 400 mcg in 100 mls @ 4.196 mls/hr IV .[id number] PRN; Protocol PRN Reason: Per PROTOCOL Stop: 05/01/25 14:45 Lactated Ringer's (Lactated Ringers) 1,000 mls @ 999 mls/hr IV .Q1H1M ONE Stop: 04/02/25 01:23 Lactated Ringer's (Lactated Ringers) 1,000 mls @ 999 mls/hr IV .Q1H1M ONE Stop: 04/02/25 01:26 Lorazepam (Lorazepam 0.5 Mg Tablet) 2 mg PO Q6HR PRN PRN Reason: ANXIETY Stop: 04/07/25 00:25 Metoclopramide HCl (Metoclopramide 5 Mg Tablet) 5 mg PO Q6HR PRN PRN Reason: NAUSEA OR VOMITING Stop: 05/02/25 00:34 Ondansetron HCl (Ondansetron Inj 2 Mg/Ml Inj 2 Ml) 4 mg IVP Q6HR PRN; Protocol PRN Reason: NAUSEA OR VOMITING Stop: 05/02/25 00:23 Pantoprazole Sodium (Pantoprazole 40 Mg Tablet) 40 mg PO QDAY GINNY Stop: 05/02/25 08:59 Sennosides (Senna Tablet) 1 tab PO QDAY GINNY; Protocol Stop: 05/02/25 08:59 Discontinued Medications Diazepam (Diazepam Inj 5 Mg/Ml Vial 2 Ml) 10 mg IVP X1 ONE Stop: 04/01/25 20:17 Last Admin: 04/01/25 20:22 Dose: 10 mg Diphenhydramine HCl (Diphenhydramine Inj 50 Mg/Ml Vial) 25 mg IVP X1 ONE Stop: 04/01/25 13:54 Last Admin: 04/01/25 14:02 Dose: 25 mg Diphenhydramine HCl (Diphenhydramine Inj 50 Mg/Ml Vial) 25 mg IVP X1 ONE Stop: 04/01/25 14:11 Last Admin: 04/01/25 14:15 Dose: 25 mg Diphenhydramine HCl (Diphenhydramine Inj 50 Mg/Ml Vial) 50 mg IVP X1 STA Stop: 04/01/25 20:17 Last Admin: 04/01/25 20:22 Dose: 50 mg Haloperidol Lactate (Haloperidol Lact Inj 5 Mg/Ml Vial) 5 mg IM X1 ONE Stop: 04/01/25 13:54 Last Admin: 04/01/25 14:00 Dose: 5 mg Hydralazine HCl (Hydralazine Inj 20 Mg/Ml Vial) 2 mg IVP X1 ONE Stop: 04/01/25 21:05 Hydralazine HCl (Hydralazine Inj 20 Mg/Ml Vial) 20 mg IVP X1 ONE Stop: 04/01/25 21:05 Last Admin: 04/01/25 21:38 Dose: 20 mg Hydroxyzine HCl (Hydroxyzine Hcl 10 Mg Tablet) 10 mg PO X1 ONE Stop: 04/01/25 14:36 Last Admin: 04/01/25 15:44 Dose: Not Given Lactated Ringer's (Lactated Ringers) 1,000 mls @ 999 mls/hr IV .Q1H1M ONE Stop: 04/01/25 14:41 Last Infusion: 04/01/25 15:00 Dose: Infused Lactated Ringer's (Lactated Ringers) 1,000 mls @ 1,000 mls/hr IV .Q1H STA Stop: 04/01/25 21:15 Last Infusion: 04/01/25 21:04 Dose: Infused Potassium Chloride (Kcl Ivpb) 10 meq in 100 mls @ 100 mls/hr IV X1 ONE Stop: 04/01/25 21:32 Last Admin: 04/01/25 21:04 Dose: Not Given Potassium Chloride (Kcl Ivpb) 10 meq in 100 mls @ 100 mls/hr IV X1 ONE Stop: 04/01/25 21:33 Last Infusion: 04/01/25 21:54 Dose: Infused Lorazepam (Lorazepam 0.5 Mg Tablet) 2 mg PO Q8HR PRN PRN Reason: ANXIETY Stop: 04/07/25 00:25 Metoclopramide HCl (Metoclopramide Inj 5 Mg/Ml Vial 2 Ml) 10 mg IVP Q6HR PRN; Protocol PRN Reason: NAUSEA OR VOMITING Stop: 05/02/25 00:25 Metoprolol Tartrate (Metoprolol Tartrate Inj 1 Mg/Ml Amp 5 Ml) 5 mg IVP X1 ONE Stop: 04/01/25 18:50 Last Admin: 04/01/25 19:44 Dose: 5 mg Midazolam HCl (Midazolam Inj 1 Mg/Ml Vial 2 Ml) 2 mg IVP X1 ONE Stop: 04/01/25 13:40 Last Admin: 04/01/25 13:54 Dose: 2 mg Midazolam HCl (Midazolam Inj 1 Mg/Ml Vial 2 Ml) 2 mg IVP X1 ONE Stop: 04/01/25 14:11 Last Admin: 04/01/25 14:20 Dose: Not Given Midazolam HCl (Midazolam Inj 1 Mg/Ml Vial 2 Ml) 4 mg IVP X1 ONE Stop: 04/01/25 14:14 Last Admin: 04/01/25 14:21 Dose: 4 mg Midazolam HCl (Midazolam Inj 1 Mg/Ml Vial 2 Ml) 4 mg IVP X1 ONE Stop: 04/01/25 14:34 Last Admin: 04/01/25 14:44 Dose: 4 mg Midazolam HCl (Midazolam Inj 1 Mg/Ml Vial 2 Ml) 2 mg IVP X1 ONE Stop: 04/01/25 16:52 Midazolam HCl (Midazolam Inj 1 Mg/Ml Vial 2 Ml) 4 mg IVP X1 ONE Stop: 04/01/25 16:52 Last Admin: 04/01/25 17:22 Dose: 4 mg Ondansetron HCl (Ondansetron Inj 2 Mg/Ml Inj 2 Ml) 4 mg IVP X1 ONE; Protocol Stop: 04/01/25 13:50 Last Admin: 04/01/25 14:01 Dose: 4 mg Ondansetron HCl (Ondansetron Inj 2 Mg/Ml Inj 2 Ml) 4 mg IVP X1 ONE; Protocol Stop: 04/01/25 20:17 Last Admin: 04/01/25 20:22 Dose: 4 mg Potassium Chloride (Potassium Chloride 20 Meq Tabcr) 40 meq PO X1 ONE Stop: 04/01/25 20:08 Last Admin: 04/01/25 20:53 Dose: Not Given Assessment & Plan Plan This is a 29 year old male presented with multiple episodes of vomitings. He was admitted for Intractable vomiting. #Acid Base Imbalance #Metabolic alkalosis in setting of vomiting #Respiratory alkalosis in setting of anxiety and hyperventilation #Metabolic acidosis possibly in setting of starvation ketosis ABG PH:7.52 , Pco2:27mm Hg ,HCo3:11.3, Anion Gap of 26, delta delta: 13.7 Presented to the ED with multiple approximately 10 episodes of vomiting - Ordered VBG - IV fluids. - Ondansetron as needed for nausea and vomiting - Benzodiazepines as needed for anxiety - F/u urinary Chloride levels, to evaluate for renal compensation - Consider Consult Nephrology if does not resolve. #?Cannabinoid Hyperemesis Syndrome #Intractable Nausea and Vomiting Presented to the ED with multiple approximately 10 episodes of bilious, nonbloody vomiting UDS positive for THC is a daily smoker, had previous hospitalization for similar symptoms however patient continues to consume THC -Ondansetron prn -Metoclopramide #Anxiety: -Lorazepam 2mg Q8hr prn #Constipation High stool burden on KUB X ray. - Lactulose given but patient refused - Senna #Hypertension: -Losartan 25mg qday #Polysubstance abuse Patient with history of polysubstance use UDS was positive for cocaine, THC, benzos - referered to tree and shrub worker for counseling Disposition: tele Fluids: LR Feeding: Regular Thrombo prophylaxis: Heparin Gastric Ulcer prophylaxis: Pantoprazole CODE STATUS: Full code Case discussed with my senior Dr. Geronimo PGY-[address] Carmen Gamboa MD PGY-1 Attending Provider Attestation/Addendum After examination of the patient and review of the clinical data I feel that this patient needs admission to the hospital for further treatment/evaluation. Plan of care discussed with patient and is in agreement. I Martir Taylor MD, attest that I was physically present for pappas portions of evaluation, and examined patient, labs and imagings and plan of care were discussed with IM residents team, and I agree with the findings and plans documented above.
[2025-04-02] MEDS: RINGERS LACTATED 1000 ML 1,000 ML 999 ML IV ×3 (01:19→13:59)
--- NOTE | 2025-04-02 02:06 | PC.NURSE ---
LACTULOSE NOT GIVEN PT STATES HE IS AFRAID HE WILL THROW IT UP AND DOES NOT WANT IT AT THIS TIME
--- NOTE | 2025-04-02 02:10 | PC.NURSE ---
NOTIFIED PT REFUSED LACTULOSE
[2025-04-02] MEDS: ONDANSETRON INJ 2 MG/ML INJ 2 ML 4 MG IVP ×3 (03:10→18:23)
[2025-04-02] MEDS: ACETAMINOPHEN 325 MG TABLET 650 MG PO (04:01)
--- NOTE | 2025-04-02 04:43 | PC.NURSE ---
Attempted to do med rec, pt unable to tell exact dosages on meds aside from clonazepam 1 mp PO BID. Informed pt to have family bring in home meds.
[2025-04-02] MEDS: HEPARIN SOD INJ 5000 UNIT/ML VIAL SC ×3 (05:04→21:05)
[2025-04-02 05:16] LABS: Base Excess, Venous -1 (-3-3); O2 Saturation, Venous 99 % (96-97); PCO2, Venous 33 mmHg (36-56); PO2, Venous 99 mmHg (15-58); pH, Venous 7.45 (7.33-7.66)
[2025-04-02 05:26] LABS: Basophils # (Auto) 0.0 Thou/mm3 (0.0-0.2); Basophils % (Auto) 0 % (0-2.5); Eosinophils # (Auto) 0.0 Thou/mm3 (0.0-0.5); Eosinophils % (Auto) 0 % (0-10); Hematocrit 42.5 % (41.0-53.0); Hemoglobin 14.6 g/dL (13.5-16.0); Immature Granulocytes Auto 0.07 Thou/mm3 (0.00-0.00); Lymphocytes # (Auto) 1.7 Thou/mm3 (1.0-4.8); Lymphocytes % (Auto) 10 % (10-50); Mean Corpuscular HGB Conc 34.4 g/dl (31.0-37.0); Mean Corpuscular Hemoglobin 28.9 pg (25.0-35.0); Mean Corpuscular Volume 84 fL (80-100); Monocytes # (Auto) 0.8 Thou/mm3 (0.0-0.8); Monocytes % (Auto) 5 % (0-12); Neutrophils # (Auto) 14.1 Thou/mm3 (1.8-7.7); Neutrophils % (Auto) 85 % (37-80); Nucleated Red Blood Cell # 0.00 Thou/mm3 (0.00-0.00); Nucleated Red Blood Cell % 0 /100 WBC (0); Platelet Count 302 Thou/mm3 (140-440); RDW Standard Deviation 41.5 fL (35.1-43.9); Red Blood Count 5.05 Miln/mm3 (4.50-5.90); White Blood Count 16.6 Thou/mm3 (3.8-10.6)
[2025-04-02 05:53] LABS: Alanine Aminotransferase 15 U/L (10-49); Albumin, Serum 4.7 gm/dL (3.5-5.0); Albumin/Globulin Ratio 1.9 (1.2-2.2); Alkaline Phosphatase 84 U/L (46-116); Anion Gap 15 (7-16); Aspartate Amino Transferase 21 U/L (0-34); BUN/Creatinine Ratio 8 Ratio (12-20); Bilirubin,Total 0.8 mg/dL (0.3-1.2); Blood Urea Nitrogen 6 mg/dL (9-23); Calcium 9.4 mg/dL (8.3-10.6); Calcium (Corrected) 9.4 mg/dL (8.5-10.1); Carbon Dioxide 22.2 mMol/L (20.0-31.0); Chloride 103 mMol/L (98-107); Creatine Kinase 572 U/L (34-171); Creatinine (Component) 0.8 mg/dL (0.6-1.3); Estimated Creatinine Clearance 138.6 mL/min (>60); Globulin 2.5 gm/dL (2.3-3.5); Glucose 136 mg/dL (74-106); Magnesium 1.7 mg/dL (1.6-2.6); Osmolality,Calculated 279 (275-295); Potassium 3.0 mMol/L (3.4-5.1); Sodium 140 mMol/L (136-145); Total Protein 7.2 gm/dL (5.7-8.2); eGFR > 60 See Note
[2025-04-02] MEDS: Magnesium Sulfate 2 GM Ivpb 2 GM/50 ML BAG IV (08:47)
[2025-04-02] MEDS: POTASSIUM CHL 10 mEq IVPB 10 MEQ/100 ML BAG 100 MEQ IV ×3 (08:51→11:34)
[2025-04-02] MEDS: LOSARTAN POTASSIUM 25 MG TABLET PO (08:51)
[2025-04-02] MEDS: PANTOPRAZOLE 40 MG TABLET PO (08:52)
--- NOTE | 2025-04-02 09:05 | PC.NURSE ---
During morning med pass, patient was given protonix, losartan, and senna with small sip of water. Patient vomited meds and Dr. Kramer is aware.
--- NOTE | 2025-04-02 09:18 | ESPR_ITS ---
<Statement entered by Toñito Vences MD - 04/09/25 12:09> I reviewed above note and agree with findings and plans. I have also personally examined the patient with medicine team and went over assessment and plan with medical team including internet and e business project manager and resident physician. <Statement entered by Kyle Antonio MD - 04/02/25 13:33> I saw and examined patient personally and supervised PGY 1 resident, Dr. Kramer with formulating a management plan. I agree with the documentation with the exceptions as listed below. Patient is a 29-year-old male past medical history significant for anxiety who presented with 10 episodes of vomiting after eating a hamburger from a veterinary receptionist. He was admitted for intractable nausea and vomiting. Problem list: 1. Intractable nausea and vomiting 2. Hypokalemia 3. Leukocytosis 4. Elevated creatinine kinase 5. Anion gap metabolic acidosis?resolved 6. Metabolic alkalosis secondary to intractable vomiting?resolving 7. Polysubstance use disorder Patient's intractable nausea and vomiting have since resolved after receiving metoclopramide diazepam IV. He stated that his symptoms occurred after eating a hamburger with jalapenos yesterday. He also endorsed daily use of cannabis. At this point etiology of his vomiting is either from gastroenteritis or cannabis hyperemesis syndrome. To confirm the diagnosis of cannabis hyperemesis syndrome patient will have to be abstinent for a least a 6 months to see if his symptoms resolve. We are treating him with metoclopramide 10 mg IV Q8 hourly as needed along with Zofran 4 Mg IV Q6 hourly as needed. Also started patient on a bland diet as tolerated. Patient initially presented with a anion gap metabolic acidosis with a anion gap of 26 and serum bicarbonate level of 11.3. At the point of admission no beta- hydroxybutyrate, lactate, salicylate, ethylene glycol or oxy proline levels were obtained. Etiology of this acidosis is obscure at this point. Based on his admission ABG which showed a pH of 7.52 and pCO2 27 he also had a concomitant metabolic alkalosis. This is fitting with his history of intractable vomiting and hydrogen ion loss. This morning his potassium was 3 and we repleted with KCl 40 mEq IV x 1. Will follow-up with a repeat renal panel at 2 PM. Patient's U tox on admission was positive for diazepam, THC and cocaine. Patient was extensively counseled adverse effects of substance use disorders and encouraged to stop. director of volunteer services were made available for him as well. Once patient's vomiting subsides and he tolerates diet, anticipate discharge within next 24 to 48 hours. Plan of care discussed with Attending Dr. Ru Antonio MD PGY 2 Disclaimer: This note was dictated by speech recognition. Minor errors in green chain marker may be present due to voice recognition software. Documentation for date of: 04/02/25 Subjective Subjective Interval history: Patient examined bedside, labs reviewed. he had just vomited his most recent doses of losartan, senna, and protonix. States he has a history of feeling numbness and paralysis in his body the last time he had a similar episode of vomiting. Endorses vaping 1g of THC cartridge per day before he had his daughter, now a days he vapes 1 g of THC every 3 days. Exam Vital Signs Temp Pulse Resp BP Pulse Ox O2 Del Method 97.0 F 86 18 164/104 H 97 Room Air 04/02/25 08:00 04/02/25 08:51 04/02/25 08:00 04/02/25 08:51 04/02/25 08:00 04/02/25 08:00 Narrative Exam GENERAL: NAD, AAOx3, lethargic, but easily arousable HEENT: Moist mucosa. Eyes open, symmetrical, & clear CARDIO: Heart RRR, no obvious murmurs PULM: No noted coughing/dyspnea CTA B/L, no R/W/R GI: Abdomen soft, nondistended, tender on Left upper and lower quadrants. BSx4. No rebound, guarding, or tension. SKIN/MSK/EXT: No wounds/rashes/edema/amputations, no pain on palpation. Pedal pulses present B/L NEURO: AAOx3, no focal neuro deficits, able to move all 4 extremities Objective Labs 04/02/25 04:40 04/02/25 04:40 Labs: Laboratory Results - last 24 hr 04/01/25 04/01/25 04/01/25 13:55 14:52 20:24 WBC 16.2 H RBC 4.93 Hgb 13.9 Hct 40.4 L MCV 82 MCH 28.2 MCHC 34.4 RDW Std Deviation 38.5 Plt Count 294 Neut % (Auto) 89 H Lymph % (Auto) 7 L Starr % (Auto) 4 Eos % (Auto) 0 Baso % (Auto) 0 Neut # (Auto) 14.4 H Lymph # (Auto) 1.1 Starr # (Auto) 0.6 Eos # (Auto) 0.0 Baso # (Auto) 0.0 Immature Gran # (Auto) 0.06 H Absolute Nucleated RBC 0.00 Immature Gran % 0 Nucleated RBC % 0 Puncture Site ABG pH ABG pCO2 ABG pO2 ABG HCO3 ABG O2 Saturation ABG Base Excess VBG pH VBG pCO2 VBG pO2 VBG O2 Sat (Radha) VBG Base Excess FiO2 Sodium 142 142 Potassium 3.1 L 3.2 L Chloride 103 105 Carbon Dioxide 18.1 L 11.3 L* Anion Gap 21 H 26 H BUN 8 L 9 Creatinine 1.0 1.1 Estim Creat Clear Calc 110.9 100.8 eGFR > 60 > 60 BUN/Creatinine Ratio 8 L 8 L Glucose 167 H 149 H Calculated Osmolality 285 284 Calcium 9.8 10.5 Corrected Calcium 9.8 10.5 H Magnesium 1.8 Total Bilirubin 0.6 0.6 AST 22 28 ALT 17 19 Alkaline Phosphatase 86 84 Ammonia 17 Total Creatine Kinase 314 H Troponin I < 0.002 Total Protein 7.6 8.2 Albumin 5.1 H 5.5 H Globulin 2.5 2.7 Albumin/Globulin Ratio 2.0 2.0 Beta-Hydroxybutyrate/Acetoacetate TSH 0.36 L Thyroxine (T4) 9.9 Ur Collection Type Catheter Urine Color Colorless A Urine Clarity Clear Urine pH 8.0 H Ur Specific [place] 1.011 Urine Protein Negative Urine Glucose (UA) 1+ A Urine Ketones 3+ A Urine Blood Negative Urine Nitrite Negative Urine Bilirubin Negative Urine Urobilinogen (Auto) Negative Ur Leukocyte Esterase Negative Urine RBC 5 H Urine WBC 5 Ur Squamous Epith Cells < 1 Urine Bacteria None Ur Culture Indicated? Not Indicated Salicylates < 3.0 Urine Opiates Screen Negative Urine Fentanyl Screen Negative Acetaminophen < 2.0 L Ur Barbiturates Screen Negative U Amphetamin/Meth Scrn Negative U Benzodiazepines Scrn Positive A U Cocaine Metab Screen Positive A U Marijuana (THC) Screen Positive A Ethyl Alcohol < 3.0 04/01/25 04/01/25 04/02/25 21:08 23:51 04:40 WBC 16.6 H RBC 5.05 Hgb 14.6 Hct 42.5 MCV 84 MCH 28.9 MCHC 34.4 RDW Std Deviation 41.5 Plt Count 302 Neut % (Auto) 85 H Lymph % (Auto) 10 Starr % (Auto) 5 Eos % (Auto) 0 Baso % (Auto) 0 Neut # (Auto) 14.1 H Lymph # (Auto) 1.7 Starr # (Auto) 0.8 Eos # (Auto) 0.0 Baso # (Auto) 0.0 Immature Gran # (Auto) 0.07 H Absolute Nucleated RBC 0.00 Immature Gran % 0 Nucleated RBC % 0 Puncture Site Right Radial ABG pH 7.52 H ABG pCO2 27 L ABG pO2 103 ABG HCO3 22 ABG O2 Saturation 99 H ABG Base Excess 0 VBG pH 7.45 VBG pCO2 33 L VBG pO2 99 H VBG O2 Sat (Radha) 99 H VBG Base Excess -1 FiO2 21 Sodium 140 Potassium 3.0 L Chloride 103 Carbon Dioxide 22.2 Anion Gap 15 BUN 6 L Creatinine 0.8 Estim Creat Clear Calc 138.6 eGFR > 60 BUN/Creatinine Ratio 8 L Glucose 136 H Calculated Osmolality 279 Calcium 9.4 Corrected Calcium 9.4 Magnesium 1.7 Total Bilirubin 0.8 AST 21 ALT 15 Alkaline Phosphatase 84 Ammonia Total Creatine Kinase 572 H D Troponin I Total Protein 7.2 Albumin 4.7 D Globulin 2.5 Albumin/Globulin Ratio 1.9 Beta-Hydroxybutyrate/Acetoacetate 0.6 H TSH Thyroxine (T4) Ur Collection Type Urine Color Urine Clarity Urine pH Ur Specific [place] Urine Protein Urine Glucose (UA) Urine Ketones Urine Blood Urine Nitrite Urine Bilirubin Urine Urobilinogen (Auto) Ur Leukocyte Esterase Urine RBC Urine WBC Ur Squamous Epith Cells Urine Bacteria Ur Culture Indicated? Salicylates Urine Opiates Screen Urine Fentanyl Screen Acetaminophen Ur Barbiturates Screen U Amphetamin/Meth Scrn U Benzodiazepines Scrn U Cocaine Metab Screen U Marijuana (THC) Screen Ethyl Alcohol ABG Interpretation ABG results: 04/01/25 04/02/25 21:08 04:40 ABG pH 7.52 H ABG pCO2 27 L ABG pO2 103 ABG HCO3 22 ABG O2 Saturation 99 H ABG Base Excess 0 VBG pH 7.45 VBG pCO2 33 L VBG pO2 99 H VBG Base Excess -1 Quality Measures Quality Measures VTE prophylaxis Assessment & Plan Assessment Current Active Medications: Generic Name Dose Route Start Last Admin Trade Name Freq PRN Reason Stop Dose Admin Acetaminophen 650 mg 04/02/25 00:19 Acetaminophen 325 Mg Tablet PO 05/02/25 00:18 Q6H PRN Fever >100.4 Acetaminophen 650 mg 04/02/25 00:19 04/02/25 04:01 Acetaminophen 325 Mg Tablet PO 05/02/25 00:18 650 mg Q6H PRN Administration PAIN SCALE 1-3 (mild Heparin Sodium (Porcine) 5,000 unit 04/02/25 06:00 04/02/25 05:04 Heparin Sod Inj 5000 Unit/Ml Vial SC 04/16/25 05:59 5,000 unit Q8HR GINNY Administration Potassium Chloride 10 meq in 100 mls @ 100 mls/hr 04/02/25 07:40 04/02/25 08:51 Kcl Ivpb IV 04/02/25 10:39 100 mls/hr Q1H GINNY Administration Magnesium Sulfate 2 gm in 50 mls @ 25 mls/hr 04/02/25 07:42 04/02/25 08:47 Magnesium Sulfate Ivpb IV 04/02/25 09:41 25 mls/hr X1 ONE Administration Lorazepam 2 mg 04/02/25 00:34 Lorazepam 0.5 Mg Tablet PO 04/07/25 00:25 Q6HR PRN ANXIETY Losartan Potassium 25 mg 04/02/25 09:00 04/02/25 08:51 Losartan Potassium 25 Mg Tablet PO 05/02/25 08:59 25 mg QDAY GINNY Administration Metoclopramide HCl 5 mg 04/02/25 00:35 Metoclopramide 5 Mg Tablet PO 05/02/25 00:34 Q6HR PRN NAUSEA OR VOMITING Ondansetron HCl 4 mg 04/02/25 00:24 04/02/25 03:10 Ondansetron Inj 2 Mg/Ml Inj 2 Ml IVP 05/02/25 00:23 4 mg Q6HR PRN Administration NAUSEA OR VOMITING Protocol Pantoprazole Sodium 40 mg 04/02/25 09:00 04/02/25 08:52 Pantoprazole 40 Mg Tablet PO 05/02/25 08:59 40 mg QDAY GINNY Administration Sennosides 1 tab 04/02/25 09:00 04/02/25 08:47 Senna Tablet PO 05/02/25 08:59 1 tab QDAY GINNY Administration Protocol Plan This is a 29 year old male presented with multiple episodes of vomiting. He was admitted for Intractable vomiting f/t/h acid base anomaly that has since resolved. #Intractable Nausea and Vomiting most likely 2/2 #Cannabis Hyperemesis Syndrome Presented to the ED with multiple approximately 10 episodes of bilious, nonbloody vomiting UDS positive for THC is a daily smoker, had previous hospitalization for similar symptoms however patient continues to consume THC. 1g t 1/3rd g per day of cannabis vaped. States warm showers have helped him in the past. -Ondansetron 4 mg IVP Q6HR prn -Metoclopramide -Capsaicin Topical QID -IV tylenol for pain 1-8 Q6H #Acid Base Imbalance - resolved #Metabolic alkalosis in setting of vomiting #Respiratory alkalosis in setting of anxiety and hyperventilation #Metabolic acidosis possibly in setting of starvation ketosis ABG PH:7.52 , Pco2:27mm Hg ,HCo3:11.3, Anion Gap of 26, delta delta: 13.7. Presented to the ED with multiple approximately 10 episodes of vomiting. Repeat VBG showed stabilization of pH 7.45 pCO2 33 pO2 99. Morning BMP showed HCO3- 22.2 (11.3). - IV fluids. - Ondansetron as needed for nausea and vomiting - Benzodiazepines as needed for anxiety - DC'd do not want to mask pain symptoms - F/u urinary Chloride levels, to evaluate for renal compensation - FUP repeat renal panel: - Consider Consult Nephrology if does not resolve. #HyperCkemia Most likely due to volume depletion (314 --> 572) i/s/o intractable vomiting. Plan: - Continue IV fluids - FUP CK until downtrending #Anxiety: -Lorazepam 2mg Q8hr prn - DC'd -Hydroxyzine 25 mg IM injxn PRN Q6H #Constipation High stool burden on KUB X ray. - Lactulose given but patient refused - Senna #Hypertension: -Losartan 25mg qday - DC'd 04/02 #Polysubstance abuse Patient with history of polysubstance use UDS was positive for cocaine, THC, benzos - referered to building maintenance worker for counseling Disposition: tele Fluids: LR Feeding: Hayes Thrombo prophylaxis: Heparin Gastric Ulcer prophylaxis: Pantoprazole CODE STATUS: Full code Case discussed with my senior Dr. Antonio PGY-[address] Ru Kramer MD PGY-1
--- NOTE | 2025-04-02 11:12 | PC.SS ---
toll test worker (SW) met with the patient at bedside to complete the initial assessment and discuss a discharge plan. Per chart review, the patient was admitted with c/o multiple episodes of vomiting. SW introduced self, role, and the reason for the consult. The patient agreed to engage in the assessment. Patient is alert and oriented to person, place, time, and situation. The patient is Constantin Gleason, , 29 y/o Spanish-speaking male residing with his parents at [address] [id number] Patient designated his life partner, Maye Mueller, , as his surrogate medical decision maker. Patient reports his baseline is independent with no DME. Patient's PCP is Dr. La at [facility]. The Patient's discharge plan is home once medically clear, and his father will provide transportation. Surrogate medical decision maker: life partner, Maye Mueller, Discharge plan: Home
[2025-04-02] MEDS: DIAZEPAM INJ 5 MG/ML VIAL 2 ML 2.5 MG IV (11:34)
[2025-04-02] MEDS: CAPSAICIN CR 60 GM TUBE TOP ×3 (11:35→21:07)
[2025-04-02] MEDS: METOCLOPRAMIDE INJ 5 MG/ML VIAL 2 ML 10 MG IVP (13:40)
[2025-04-02] MEDS: ACETAMINOPHEN IVPB 1,000 MG/100 ML VIAL 250 MG IV (13:58)
--- NOTE | 2025-04-02 14:15 | PC.SS ---
SW followed up with the patient at the bedside to provide resources for AOD. Patient reports he has not used alcohol in ten years, but reports THC and cocaine used within the last month. Patient was not forthcoming about his substance abuse history and declined inpatient AOD services. SW offered a packet of AOD resources, and he was agreeable. SS followed-up note: Patient continues nauseous and vomiting.
[2025-04-02 14:25] LABS: Albumin, Serum 5.2 gm/dL (3.5-5.0); Anion Gap 14 (7-16); BUN/Creatinine Ratio 6 Ratio (12-20); Blood Urea Nitrogen 6 mg/dL (9-23); Calcium 9.8 mg/dL (8.3-10.6); Calcium (Corrected) 9.8 mg/dL (8.5-10.1); Carbon Dioxide 20.9 mMol/L (20.0-31.0); Chloride 104 mMol/L (98-107); Creatinine (Component) 1.0 mg/dL (0.6-1.3); Estimated Creatinine Clearance 110.9 mL/min (>60); Glucose 120 mg/dL (74-106); Osmolality,Calculated 276 (275-295); Phosphorous 1.6 mg/dL (2.4-5.1); Potassium 3.3 mMol/L (3.4-5.1); Sodium 139 mMol/L (136-145); eGFR > 60 See Note
[2025-04-02] MEDS: POT PHOS 15 mMol in NS 250 ML 15 MMOL/250 ML BAG 62.5 MMOL IV (15:58)
[2025-04-02] MEDS: POTASSIUM CHL 10 mEq IVPB 100 ML 80 MEQ IV ×2 (15:58→17:14)
[2025-04-03] VITALS (18 sets, daily range): BP systolic 71–161; BP diastolic 36–112; PULSE 65–152; RESP 15–38; TEMP 36.1–37.9; O2SAT 91–100; BMI 29.0
[2025-04-03] MEDS: HEPARIN SOD INJ 5000 UNIT/ML VIAL SC ×2 (05:15→21:37)
[2025-04-03 05:41] LABS: Basophils # (Auto) 0.0 Thou/mm3 (0.0-0.2); Basophils % (Auto) 0 % (0-2.5); Eosinophils # (Auto) 0.1 Thou/mm3 (0.0-0.5); Eosinophils % (Auto) 1 % (0-10); Hematocrit 42.1 % (41.0-53.0); Hemoglobin 14.0 g/dL (13.5-16.0); Immature Granulocytes Auto 0.03 Thou/mm3 (0.00-0.00); Lymphocytes # (Auto) 3.9 Thou/mm3 (1.0-4.8); Lymphocytes % (Auto) 36 % (10-50); Mean Corpuscular HGB Conc 33.3 g/dl (31.0-37.0); Mean Corpuscular Hemoglobin 28.6 pg (25.0-35.0); Mean Corpuscular Volume 86 fL (80-100); Monocytes # (Auto) 1.1 Thou/mm3 (0.0-0.8); Monocytes % (Auto) 10 % (0-12); Neutrophils # (Auto) 5.8 Thou/mm3 (1.8-7.7); Neutrophils % (Auto) 53 % (37-80); Nucleated Red Blood Cell # 0.00 Thou/mm3 (0.00-0.00); Nucleated Red Blood Cell % 0 /100 WBC (0); Platelet Count 278 Thou/mm3 (140-440); RDW Standard Deviation 43.6 fL (35.1-43.9); Red Blood Count 4.90 Miln/mm3 (4.50-5.90); White Blood Count 10.9 Thou/mm3 (3.8-10.6)
[2025-04-03 06:24] LABS: Alanine Aminotransferase 16 U/L (10-49); Albumin, Serum 4.3 gm/dL (3.5-5.0); Albumin/Globulin Ratio 2.0 (1.2-2.2); Alkaline Phosphatase 74 U/L (46-116); Anion Gap 9 (7-16); Aspartate Amino Transferase 19 U/L (0-34); BUN/Creatinine Ratio 8 Ratio (12-20); Bilirubin,Total 0.6 mg/dL (0.3-1.2); Blood Urea Nitrogen 8 mg/dL (9-23); Calcium 9.0 mg/dL (8.3-10.6); Calcium (Corrected) 9.0 mg/dL (8.5-10.1); Carbon Dioxide 28.7 mMol/L (20.0-31.0); Chloride 104 mMol/L (98-107); Creatinine (Component) 1.0 mg/dL (0.6-1.3); Estimated Creatinine Clearance 110.9 mL/min (>60); Globulin 2.2 gm/dL (2.3-3.5); Glucose 105 mg/dL (74-106); Magnesium 2.5 mg/dL (1.6-2.6); Osmolality,Calculated 281 (275-295); Phosphorous 3.0 mg/dL (2.4-5.1); Potassium 3.5 mMol/L (3.4-5.1); Sodium 142 mMol/L (136-145); Total Protein 6.5 gm/dL (5.7-8.2); eGFR > 60 See Note
--- NOTE | 2025-04-03 08:19 | PC.NURSE ---
pt having really bad anxiety notified MD JAMIN will add med
[2025-04-03] MEDS: PANTOPRAZOLE 40 MG TABLET PO (08:26)
--- NOTE | 2025-04-03 09:36 | PD.RESDS ---
Planned Discharge Date 04/03/25 DS: Providers Provider Date of admission: 04/02/25 00:44 Primary care physician: Physician No Primary/Family Admitting Provider: Martir Taylor MD Attending Provider on Admission: Martir Taylor MD Attending Provider on DC: Toñito Vences MD Discharging Provider: Toñito Vences MD Hospital Course Hospital Course Hospital course: 77 M with PMHx CPAP 5L H2O with supplemental oxygen at home, hypertension, hyperlipidemia, type 2 diabetes mellitus, obesity, CHF, MARIBEL, CKD stage III who was BIBA from SNF due to slurred speech and left sided weakness admitted for stroke work up. ED Course Summary: In the ED he had elevated HR and blood pressure. Stroke work up was negative. ABG revealed hypercarbia. Patient started on 4L O2 nasal cannula. Hospital Course: Patient was seen by Neurology NIHSS: 2 with asterixis deemed most likely secondary to lyrica. Repeat ABG confirmed hypercarbia and patient deemed to be encephalopathic due to CO2 retention. Patient improved on CPAP with settings: IPAP: 14, EPAP: 6, FiO2:50% on 4-5 L nasal cannula. Family confirmed back to baseline. Patient encouraged to follow up with florist to adjust vent settings. Discharge Instructions: #Acute encephalopathy #Stroke ruled out #Respiratory acidosis with metabolic alkalosis, in setting of #MARIBEL #PAH #Hx of HTN #HLD #Non insulin dependent type II Diabetes mellitus Patient's plan and care discussed with my attending, Dr. Paz, and supervising resident MD Horace Montenegro MD Internal Medicine PGY-1 Status at Discharge Functional status at discharge: independent ambulation Overall status at discharge: patient is back to baseline Time Spent with Patient Time attestation: Total time spent providing and/or coordinating discharge services: Time spent: Greater than 30 minutes Exam Vital Signs Temp Pulse Resp BP Pulse Ox O2 Del Method 97.1 F 79 18 132/95 H 98 Room Air 04/03/25 08:00 04/03/25 08:00 04/03/25 08:00 04/03/25 08:00 04/03/25 08:00 04/03/25 08:00 Narrative Exam GENERAL: NAD, AAOx3, lethargic, but easily arousable HEENT: Moist mucosa. Eyes open, symmetrical, & clear CARDIO: Heart RRR, no obvious murmurs PULM: No noted coughing/dyspnea CTA B/L, no R/W/R GI: Abdomen soft, nondistended, mild reproducible tender BSx4 SKIN/MSK/EXT: No wounds/rashes/edema/amputations, no pain on palpation. Pedal pulses present B/L NEURO: AAOx3, no focal neuro deficits, able to move all 4 extremities Discharge Plan Plan Patient Disposition: HOME (Self Care) Care Plan Goals: - You have been started on a medication ondansetron for your nausea. Take one tablet eveyr 6 hours as needed - We have stopped your medication clonazepam. DO not take anymore - Follow up with your primary care physician within 1 week of discharge. If you do not have a primary care physician, please follow up with the [facility] Residents clinic ([phone]) ? If you experience any new, worsening or persistent symptoms either call your primary doctor, or dial 911 or present to the emergency department. Prescriptions/Referrals Prescriptions/Med Rec: Continued ondansetron 4 mg tablet,disintegrating 4 mg PO Q6H PRN (Reason: nausea and vomiting) 14 Days Qty: 14 0RF Discontinued metoclopramide HCl [Reglan] 10 mg tablet 10 mg PO Q6H PRN (Reason: nausea and vomiting) Qty: 30 0RF hydroxyzine HCl 50 mg tablet 50 mg PO TID PRN (Reason: anxiety) Qty: 30 0RF metoclopramide HCl [Reglan] 10 mg tablet 10 mg PO Q6H PRN (Reason: nausea and vomiting) Qty: 20 0RF pantoprazole [Protonix] 40 mg tablet,delayed release (DR/EC) 40 mg PO QDAY Qty: 20 0RF clonazepam 1 mg tablet 1 mg PO BID Patient Comments: 1 mg orally twice a day for 4 days Referrals: [facility] [Outside] No Primary/Family,Physician [Primary Care Provider] Patient/Caregiver Discharge Instructions Education Materials: ED Vomiting (Adult) Print Language: Slovenian Stand Alone Forms: Gina Award Info., Patient Portal Info Letter Discharge Order Discharge Orders: Discharge (Routine); Ordered 04/03/25 Ordered By: Kyle Antonio
[2025-04-03] MEDS: ONDANSETRON INJ 2 MG/ML INJ 2 ML 4 MG IVP ×2 (12:24→19:46)
--- NOTE | 2025-04-03 12:25 | PC.NURSE ---
WATER SOFTENER SERVICE SUPERVISOR called for increased anxiety, pt complaining of numbness and weakness, pain in abd, yelling in room, nausea and vomiting
--- NOTE | 2025-04-03 12:27 | PC.NURSE ---
BG 161, HR 158-122 Bp 182/141 than 174/119 pt very restless, 100 sats RR 29 Md and CN at bedside
--- NOTE | 2025-04-03 13:30 | PC.NURSE ---
Called MD again pt extremely restless and anxious and yelling moving around everywhere
--- NOTE | 2025-04-03 13:30 | PC.LAC ---
pt given zofran for nausea, atarax, and clonazepam for anxiety
--- NOTE | 2025-04-03 13:34 | PC.NURSE ---
CAR DEALER called pt states he is feeling like he is coming out of his body, pt very agitated and anxious
--- NOTE | 2025-04-03 13:49 | ESPR_ITS ---
<Statement entered by Toñito Vences MD - 04/09/25 12:11> I reviewed above note and agree with findings and plans. I have also personally examined the patient with medicine team and went over assessment and plan with medical team including rn internal medicine and resident physician. <Statement entered by Kyle Antonio MD - 04/03/25 18:01> I saw and examined patient personally and supervised PGY 1 resident, Dr. Kramer with formulating a management plan. I agree with the documentation with the exceptions as listed below. 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 He was admitted for intractable nausea and vomiting. Problem list: 1. Altered mental status secondary to benzodiazepine withdrawal 2. Intractable nausea and vomiting - resolving 3. Leukocytosis - resolving 4. Elevated creatinine kinase - resolving 5. Metabolic alkalosis secondary to intractable vomiting?resolving 6. Polysubstance use disorder Patient initially presented with intractable nausea and vomiting and was started on Reglan 10 mg IV Q6 hourly as needed along with Zofran 4 Mg IV every 6 hourly as needed. After 1 day of treatment is vomiting resolved and he was able to tolerate p.o. diet. Today patient was cleared for discharge, however when the nurse was reading him the discharge instructions which stated, stopped taking clonazepam, he became extremely agitated. He started shouting, writhing around in the bed and threatening staff members. Multiple code margoth were called and patient was started on CIWA protocol. Patient received a total of Valium 27.5 mg IV along with phenobarbital 520 mg IV after which his agitation subsided. ICU team was consulted due to possible need for Precedex infusion overnight if he again becomes agitated and to also monitor for respiratory depression. Plan of care discussed with Attending Dr. Ru Antonio MD PGY 2 Disclaimer: This note was dictated by speech recognition. Minor errors in demand equipment repairer may be present due to voice recognition software. Documentation for date of: 04/03/25 Subjective Subjective Interval history: Patient examined bedside, labs reviewed. Patient reports feeling much improved today no numbness or tingling or nausea or vomiting; however, does feel anxious. Had an intense dream about his daughter last night. A rapid was called after rounds for an anxiety attack/withdrawal, hydroxyzine, benadryl, and melatonin given, attack resolved once clinicians exited the room to discuss the case. Exam Vital Signs Temp Pulse Resp BP Pulse Ox O2 Del Method 97.0 F 88 19 115/87 H 100 Room Air 04/03/25 12:00 04/03/25 12:00 04/03/25 12:00 04/03/25 12:00 04/03/25 12:00 04/03/25 08:00 Narrative Exam GENERAL: NAD, AAOx3, lethargic, but easily arousable HEENT: Moist mucosa. Eyes open, symmetrical, & clear CARDIO: Heart RRR, no obvious murmurs PULM: No noted coughing/dyspnea CTA B/L, no R/W/R GI: Abdomen soft, nondistended, mildly tender on Right upper and lower quadrants. BSx4. No rebound, guarding, or tension. SKIN/MSK/EXT: No wounds/rashes/edema/amputations, no pain on palpation. Pedal pulses present B/L NEURO: AAOx3, no focal neuro deficits, able to move all 4 extremities Objective Labs 04/03/25 04:56 04/03/25 04:56 Labs: Laboratory Results - last 24 hr 04/02/25 04/03/25 13:44 04:56 WBC 10.9 H D RBC 4.90 Hgb 14.0 Hct 42.1 MCV 86 MCH 28.6 MCHC 33.3 RDW Std Deviation 43.6 Plt Count 278 Neut % (Auto) 53 Lymph % (Auto) 36 [place] % (Auto) 10 Eos % (Auto) 1 Baso % (Auto) 0 Neut # (Auto) 5.8 Lymph # (Auto) 3.9 [place] # (Auto) 1.1 H Eos # (Auto) 0.1 Baso # (Auto) 0.0 Immature Gran # (Auto) 0.03 H Absolute Nucleated RBC 0.00 Immature Gran % 0 Nucleated RBC % 0 Sodium 139 142 Potassium 3.3 L 3.5 Chloride 104 104 Carbon Dioxide 20.9 28.7 Anion Gap 14 9 BUN 6 L 8 L Creatinine 1.0 1.0 Estim Creat Clear Calc 110.9 110.9 eGFR > 60 > 60 BUN/Creatinine Ratio 6 L 8 L Glucose 120 H 105 Calculated Osmolality 276 281 Calcium 9.8 9.0 Corrected Calcium 9.8 9.0 Phosphorus 1.6 L 3.0 Magnesium 2.5 Total Bilirubin 0.6 AST 19 ALT 16 Alkaline Phosphatase 74 Total Protein 6.5 Albumin 5.2 H D 4.3 D Globulin 2.2 L Albumin/Globulin Ratio 2.0 ABG Interpretation ABG results: 04/01/25 04/02/25 21:08 04:40 ABG pH 7.52 H ABG pCO2 27 L ABG pO2 103 ABG HCO3 22 ABG O2 Saturation 99 H ABG Base Excess 0 VBG pH 7.45 VBG pCO2 33 L VBG pO2 99 H VBG Base Excess -1 Quality Measures Quality Measures VTE prophylaxis Assessment & Plan Assessment Current Active Medications: Generic Name Dose Route Start Last Admin Trade Name Freq PRN Reason Stop Dose Admin Capsaicin 0 gm 04/02/25 12:00 04/03/25 05:16 Capsaicin Cr 60 Gm Tube TOP 05/02/25 11:59 Not Given QID GINNY Heparin Sodium (Porcine) 5,000 unit 04/02/25 06:00 04/03/25 05:15 Heparin Sod Inj 5000 Unit/Ml Vial SC 04/16/25 05:59 5,000 unit Q8HR GINNY Administration Hydroxyzine HCl 25 mg 04/02/25 14:13 Hydroxyzine Inj 25 Mg/Ml Vial IM 05/02/25 17:59 Q6HR PRN ANXIETY Hydroxyzine HCl 25 mg 04/03/25 21:00 Hydroxyzine Hcl 25 Mg Tablet PO 05/03/25 20:59 BID GINNY Melatonin 3 mg 04/03/25 21:00 Melatonin 3 Mg Tablet PO 05/03/25 20:59 HS [facility] Metoclopramide HCl 10 mg 04/02/25 09:35 04/02/25 13:40 Metoclopramide Inj 5 Mg/Ml Vial 2 Ml IVP 05/02/25 09:34 10 mg Q6HR PRN Administration NAUSEA OR VOMITING Protocol Ondansetron HCl 4 mg 04/02/25 00:24 04/03/25 12:24 Ondansetron Inj 2 Mg/Ml Inj 2 Ml IVP 05/02/25 00:23 4 mg Q6HR PRN Administration NAUSEA OR VOMITING Protocol Pantoprazole Sodium 40 mg 04/03/25 09:00 04/03/25 08:26 Pantoprazole 40 Mg Tablet PO 05/03/25 08:59 40 mg QDAY GINNY Administration Plan This is a 29 year old male presented with multiple episodes of vomiting. He was admitted for Intractable vomiting f/t/h acid base anomaly that has since resolved. Patient appears to be seeking IV medications and there are some discrepancies in his narrative surrounding his benzodiazepine usage at home; will manage benzo withdrawal with CIWA protocols. Plan to DC tomorrow. #Altered mental status secondary to benzodiazepam withdrawal #Polysubstance abuse Patient with history of polysubstance use UDS was positive for cocaine, THC, benzos. Last benzo presciption was in 2023. Patient experiencing panic attacks/signs of withdrawal, difficult to determine veracity of nature since the events rapidly dissipate upon MD entrance and exiting of the room. Patient requests IV benzos but is able to consume his PO benzo medications; however appears to start shaking when a clinician is visible. Plan: - CIIA protocol - Phenobarbital 260 mg IV x 1 loading dose, followed by phenobarbital 130 mg IV Q30 minutes until symptoms resolve - Referred to fly worker for counseling #Intractable Nausea and Vomiting most likely 2/2 - Resolved #Cannabis Hyperemesis Syndrome - Resolved Presented to the ED with multiple approximately 10 episodes of bilious, nonbloody vomiting UDS positive for THC is a daily smoker, had previous hospitalization for similar symptoms however patient continues to consume THC. 1g to 1/3rd g per day of cannabis vaped. States warm showers have helped him in the past. Plan: -Ondansetron 4 mg IVP Q6HR prn -Metoclopramide 10mg IVP Q6H PRN -Capsaicin Topical QID -IV tylenol for pain 1-8 Q6H #Acid Base Imbalance - resolved #Metabolic alkalosis in setting of vomiting #Respiratory alkalosis in setting of anxiety and hyperventilation #Metabolic acidosis possibly in setting of starvation ketosis ABG PH:7.52 , Pco2:27mm Hg ,HCo3:11.3, Anion Gap of 26, delta delta: 13.7. Presented to the ED with multiple approximately 10 episodes of vomiting. Repeat VBG showed stabilization of pH 7.45 pCO2 33 pO2 99. Morning BMP showed HCO3- 22.2 (11.3). Plan: - IV fluids. - Ondansetron as needed for nausea and vomiting - Benzodiazepines as needed for anxiety - DC'd do not want to mask pain symptoms - F/u urinary Chloride levels, to evaluate for renal compensation - FUP repeat renal panel: - Consider Consult Nephrology if does not resolve. #HyperCkemia Most likely due to volume depletion (314 --> 572) i/s/o intractable vomiting. Plan: - Continue IV fluids - FUP CK until downtrending #Constipation High stool burden on KUB X ray. Plan: - Lactulose given but patient refused - Senna #Hypertension: -Losartan 25mg qday - DC'd 04/02 Disposition: tele Fluids: LR Feeding: Ignacio Thrombo prophylaxis: Heparin Gastric Ulcer prophylaxis: Pantoprazole CODE STATUS: Full code Case discussed with my senior Dr. Antonio PGY-[address] Ru Kramer MD PGY-1
--- NOTE | 2025-04-03 14:08 | PC.NURSE ---
discharge held per
--- NOTE | 2025-04-03 14:13 | EVENTNT_ITS ---
Documentation for date of: 04/03/25 Event Note Event Note: 04/03/2025 SPEECH LANGUAGE SPECIALIST was called at time: 13:26 for bed# 260 for increasing anxiety Patient complaining of numbness and weakness. Patient seen and assessed in hospital bed in a state of acute anxiety. Patient was alert and orientated X 3. Denied chest pain. Complaining of anxiety and nausea. Just prior to event patient had received clonazepam 1mg, hydroxyzine 25mg, lorazepam 0.5mg. On presentation he was hypertensive, tachycardic and tachypnic ( HR 158-122 Bp 182/141 than 174/119 RR 30s). Physical exam was unremarkable, no acute weakness, or pain noted, able to move all 4 extremities, no focal neurological deficits, no sensory deficits noted, no signs of acute abdomen. Tx/Intervention: hydroxyzine, benadryl and melatonin. Decision: Most likely due to withdrawal/panic attack. No more IV medications for patient other than Zofran. Attending made aware and will continue to monitor patient as well. Case discussed with attending physician, Dr. Vences and resident, Dr. No - The patient's plan was discussed with attending Dr. Ru No MD PGY2 Internal Medicine
--- NOTE | 2025-04-03 14:30 | PC.NURSE ---
called pt complaining of high anxiety and states he cannot control himself yohana calderón
--- NOTE | 2025-04-03 14:58 | PC.NURSE ---
CN notified that pt trying to walk out of the room usteady to walk and anxious, requested a sitter for pt
--- NOTE | 2025-04-03 15:06 | PC.NURSE ---
Called ita moura and pt extremely agitated and trying to leave
[2025-04-03] MEDS: DIAZEPAM INJ 5 MG/ML VIAL 2 ML 2.5 MG IVP (15:23)
--- NOTE | 2025-04-03 15:27 | PC.NURSE ---
lorazepam given 0826, zofran given 1224, hydroxizine given 1230, klonopin given 1252, benadryl given 1346, buspar given 1453, versed given 1529
[2025-04-03] MEDS: DIAZEPAM INJ 5 MG/ML VIAL 2 ML IVP ×2 (15:45→19:51)
--- NOTE | 2025-04-03 15:46 | PC.NURSE ---
administered 5mg of valium SHAHIDA Grimm, Pipefitter Helper, security at bedside
--- NOTE | 2025-04-03 15:48 | PC.NURSE ---
code zeny called pt agitated and trying to leave
[2025-04-03] MEDS: PHENOBARBITAL IVP (15:54)
[2025-04-03] MEDS: SODIUM CHLORIDE 0.9% IVP (15:54)
[2025-04-03] MEDS: FLUSH IVP (15:54)
--- NOTE | 2025-04-03 16:00 | PC.NURSE ---
Pt arrived to ICU room 253 by wheelchair. Pt agitated, restless, and in a panic state. Pt given multiple meds without relief to anxiety. MD dai and christie order doses of phenobarbital and ok doses per CIWAL protocol and breakthrough. See MAR.
[2025-04-03] MEDS: DIAZEPAM INJ 5 MG/ML VIAL 2 ML 10 MG IVP ×3 (16:20→20:25)
[2025-04-03] MEDS: PHENobarbital Inj 130 MG, SODIUM CHLORIDE 0.9% FLUSH 12 ML IVP ×3 (16:26→20:10)
--- NOTE | 2025-04-03 17:20 | EKG_ITS ---
[facility] Test Date: 2025-04-03 Pat Name: SHANA WILD [facility] Gender: Male Clinical Account Manager: PRINCESS : 1995 Requested By: Jenny No Order Number: [id number] Reading MD: Jenny No Measurements Intervals Orient Rate: 96 P: 71 IN: 129 QRS: 43 QRSD: 105 T: 59 QT: 345 QTc: 437 Interpretive Statements SINUS RHYTHM WITH SINUS ARRHYTHMIA POSSIBLE LEFT ATRIAL ENLARGEMENT INCOMPLETE RIGHT BUNDLE BRANCH BLOCK Compared to ECG 05/02/2024 08:10:27 Incomplete right bundle-branch block now present Sinus tachycardia no longer present Short IN interval no longer present /store/S0/[id number]
--- NOTE | 2025-04-03 19:45 | PD.RESCONSUL ---
HPI Data of Consult Requesting Physician: Martir Taylor MD Admitting Provider: Martir Taylor MD Attending Provider: Gabi Perales MD Primary Care Provider: Physician No Primary/Family Consult Narrative Reason for consult: Severe withdrawal from benzos History of present illness: 29 y/o M with PMHx significant for anxiety presented to the ED with multiple approximately 10 episodes of vomiting for 1 day. Patient reported significant cannabis history, treatment for cannabis hyperemesis syndrome was initiated as well as metoclopramide. Patient symptoms improved, was initially planned to be discharged however after discussion with his substance abuse including benzos, patient became severely agitated thrashing, screaming, threatening nursing staff. Multiple code margoth were called, patient was started on CIWA protocol due to withdrawal from benzos. ICU team was consulted to evaluate for potential need for Precedex drip given potation's severe persistent agitation. On exam patient was notably agitated, threatening cursing staff, incomprehensible speech. Multiple times patient attempted to get up and leave but was extremely unsteady and lethargic, was able to be escorted back to bed without physical violence occurring. cc:: cc: Martir Taylor MD Review of Systems Review of Systems Systems Reviewed: All systems reviewed, normal except as documented Exam Vital Signs Temp Pulse Resp BP Pulse Ox O2 Del Method 98.6 F 120 H 20 161/99 H 91 L Room Air 04/03/25 17:13 04/03/25 17:13 04/03/25 17:13 04/03/25 17:13 04/03/25 17:13 04/03/25 17:13 Narrative Exam GENERAL: Severe agitation, uncooperative HEENT: Moist mucosa. Eyes open, symmetrical, & clear CARDIO: Heart RRR, no obvious murmurs PULM: No noted coughing/dyspnea CTA B/L, no R/W/R GI: Abdomen soft, nondistended. Nontender. SKIN/MSK/EXT: No wounds/rashes/edema/amputations, no pain on palpation. Pedal pulses present B/L. NEURO: Able to move all 4 extremities. Difficult to assess due to severe agitation. Patient had unsteady gait when attempting to leave. Results Labs 04/03/25 04:56 04/03/25 04:56 Labs: Short CBC 04/03/25 Range/Units 04:56 WBC 10.9 H D (3.8-10.6) Thou/mm3 Hgb 14.0 (13.5-16.0) g/dL Hct 42.1 (41.0-53.0) % Plt Count 278 (140-440) Thou/mm3 BMP 04/03/25 04:56 Sodium 142 Potassium 3.5 Chloride 104 Carbon Dioxide 28.7 BUN 8 L Creatinine 1.0 Glucose 105 Calcium 9.0 Liver Function 04/03/25 Range/Units 04:56 Total Bilirubin 0.6 (0.3-1.2) mg/dL AST 19 (0-34) U/L ALT 16 (10-49) U/L Alkaline Phosphatase 74 (46-116) U/L Albumin 4.3 D (3.5-5.0) gm/dL ABG Interpretation ABG results: 04/01/25 04/02/25 21:08 04:40 ABG pH 7.52 H ABG pCO2 27 L ABG pO2 103 ABG HCO3 22 ABG O2 Saturation 99 H ABG Base Excess 0 VBG pH 7.45 VBG pCO2 33 L VBG pO2 99 H VBG Base Excess -1 Quality Measures Quality Measures VTE prophylaxis Medications Home Medications and Allergies Allergies Allergy/AdvReac Type Severity Reaction Status Date / Time No Known Allergies Allergy Verified 05/02/24 07:14 Visit Medications Capsaicin (Capsaicin Cr 60 Gm Tube) 0 gm TOP QID GINNY Stop: 05/02/25 11:59 Last Admin: 04/03/25 17:00 Dose: Not Given Diazepam (Diazepam Inj 5 Mg/Ml Vial 2 Ml) 2.5 mg IVP Q2HR PRN PRN Reason: CIWA SCORE 8-13 Stop: 04/08/25 15:15 Last Admin: 04/03/25 15:23 Dose: 2.5 mg Diazepam (Diazepam Inj 5 Mg/Ml Vial 2 Ml) 5 mg IVP Q2HR PRN PRN Reason: CIWA SCORE 14-19 Stop: 04/08/25 15:15 Diazepam (Diazepam Inj 5 Mg/Ml Vial 2 Ml) 10 mg IVP Q2HR PRN PRN Reason: CIWA SCORE 20-25 Stop: 04/08/25 15:15 Last Admin: 04/03/25 17:04 Dose: 10 mg Heparin Sodium (Porcine) (Heparin Sod Inj 5000 Unit/Ml Vial) 5,000 unit SC Q8HR [facility] Stop: 04/16/25 05:59 Last Admin: 04/03/25 14:06 Dose: Not Given Metoclopramide HCl (Metoclopramide Inj 5 Mg/Ml Vial 2 Ml) 10 mg IVP Q6HR PRN; Protocol PRN Reason: NAUSEA OR VOMITING Stop: 05/02/25 09:34 Last Admin: 04/02/25 13:40 Dose: 10 mg Ondansetron HCl (Ondansetron Inj 2 Mg/Ml Inj 2 Ml) 4 mg IVP Q6HR PRN; Protocol PRN Reason: NAUSEA OR VOMITING Stop: 05/02/25 00:23 Last Admin: 04/03/25 12:24 Dose: 4 mg Pantoprazole Sodium (Pantoprazole 40 Mg Tablet) 40 mg PO QDAY [facility] Stop: 05/03/25 08:59 Last Admin: 04/03/25 08:26 Dose: 40 mg Discontinued Medications Acetaminophen (Acetaminophen 325 Mg Tablet) 650 mg PO Q6H PRN PRN Reason: Fever >100.4 Stop: 05/02/25 00:18 Acetaminophen (Acetaminophen 325 Mg Tablet) 650 mg PO Q6H PRN PRN Reason: PAIN SCALE 1-3 (mild Stop: 05/02/25 00:18 Last Admin: 04/02/25 04:01 Dose: 650 mg Buspirone HCl (Buspirone Hcl 5 Mg Tablet) 5 mg PO BID [facility] Stop: 05/03/25 14:59 Last Admin: 04/03/25 14:53 Dose: 5 mg Clonazepam (Clonazepam 0.5 Mg Tablet) 1 mg PO X1 ONE Stop: 04/03/25 12:49 Last Admin: 04/03/25 12:52 Dose: 1 mg Phenobarbital Sodium 260 mg/ (Sodium Chloride 12 ml) 0 mg IVP X1 ONE Stop: 04/03/25 15:50 Last Admin: 04/03/25 15:54 Dose: 260 mg Phenobarbital Sodium 130 mg/ (Sodium Chloride 12 ml) 0 mg IVP X1 ONE Stop: 04/03/25 16:15 Last Admin: 04/03/25 16:26 Dose: 130 mg Phenobarbital Sodium 130 mg/ (Sodium Chloride 12 ml) 0 mg IVP X1 ONE Stop: 04/03/25 16:48 Last Admin: 04/03/25 16:53 Dose: 130 mg Phenobarbital Sodium 130 mg/ (Sodium Chloride 12 ml) 0 mg IVP X1 ONE Stop: 04/03/25 17:03 Diazepam (Diazepam Inj 5 Mg/Ml Vial 2 Ml) 10 mg IVP X1 ONE Stop: 04/01/25 20:17 Last Admin: 04/01/25 20:22 Dose: 10 mg Diazepam (Diazepam Inj 5 Mg/Ml Vial 2 Ml) 2.5 mg IV Q12H PRN PRN Reason: ANXIETY Stop: 04/07/25 09:45 Diazepam (Diazepam Inj 5 Mg/Ml Vial 2 Ml) 2.5 mg IV X1 ONE Stop: 04/02/25 10:15 Last Admin: 04/02/25 11:34 Dose: 2.5 mg Diazepam (Diazepam Inj 5 Mg/Ml Vial 2 Ml) 10 mg IVP X1 PRN PRN Reason: Breakthrough Agitation Last Admin: 04/03/25 16:20 Dose: 10 mg Diazepam (Diazepam Inj 5 Mg/Ml Vial 2 Ml) 0.5 mg IVP Q2HR PRN PRN Reason: CIWA 1-7 Stop: 04/03/25 16:01 Diazepam (Diazepam Inj 5 Mg/Ml Vial 2 Ml) 5 mg IVP X1 ONE Stop: 04/03/25 15:38 Last Admin: 04/03/25 15:45 Dose: 5 mg Diphenhydramine HCl (Diphenhydramine Inj 50 Mg/Ml Vial) 25 mg IVP X1 ONE Stop: 04/01/25 13:54 Last Admin: 04/01/25 14:02 Dose: 25 mg Diphenhydramine HCl (Diphenhydramine Inj 50 Mg/Ml Vial) 25 mg IVP X1 ONE Stop: 04/01/25 14:11 Last Admin: 04/01/25 14:15 Dose: 25 mg Diphenhydramine HCl (Diphenhydramine Inj 50 Mg/Ml Vial) 50 mg IVP X1 STA Stop: 04/01/25 20:17 Last Admin: 04/01/25 20:22 Dose: 50 mg Diphenhydramine HCl (Diphenhydramine Inj 50 Mg/Ml Vial) 25 mg IVP X1 ONE Stop: 04/03/25 13:41 Last Admin: 04/03/25 13:46 Dose: 25 mg Haloperidol Lactate (Haloperidol Lact Inj 5 Mg/Ml Vial) 5 mg IM X1 ONE Stop: 04/01/25 13:54 Last Admin: 04/01/25 14:00 Dose: 5 mg Hydralazine HCl (Hydralazine Inj 20 Mg/Ml Vial) 2 mg IVP X1 ONE Stop: 04/01/25 21:05 Hydralazine HCl (Hydralazine Inj 20 Mg/Ml Vial) 20 mg IVP X1 ONE Stop: 04/01/25 21:05 Last Admin: 04/01/25 21:38 Dose: 20 mg Hydroxyzine HCl (Hydroxyzine Hcl 10 Mg Tablet) 10 mg PO X1 ONE Stop: 04/01/25 14:36 Last Admin: 04/01/25 15:44 Dose: Not Given Hydroxyzine HCl (Hydroxyzine Inj 25 Mg/Ml Vial) 25 mg IM Q6HR PRN PRN Reason: ANXIETY Stop: 05/02/25 17:59 Hydroxyzine HCl (Hydroxyzine Hcl 25 Mg Tablet) 25 mg PO X1 ONE Stop: 04/03/25 12:14 Last Admin: 04/03/25 12:30 Dose: 25 mg Hydroxyzine HCl (Hydroxyzine Hcl 25 Mg Tablet) 25 mg PO BID GINNY Stop: 05/03/25 20:59 Lactated Ringer's (Lactated Ringers) 1,000 mls @ 999 mls/hr IV .Q1H1M ONE Stop: 04/01/25 14:41 Last Infusion: 04/01/25 15:00 Dose: Infused Dexmedetomidine/Sodium Chloride (Precedex Ivpb) 400 mcg in 100 mls @ 4.196 mls/hr IV .[id number] PRN; Protocol PRN Reason: Per PROTOCOL Stop: 05/01/25 14:45 Lactated Ringer's (Lactated Ringers) 1,000 mls @ 1,000 mls/hr IV .Q1H STA Stop: 04/01/25 21:15 Last Infusion: 04/01/25 21:04 Dose: Infused Potassium Chloride (Kcl Ivpb) 10 meq in 100 mls @ 100 mls/hr IV X1 ONE Stop: 04/01/25 21:32 Last Admin: 04/01/25 21:04 Dose: Not Given Potassium Chloride (Kcl Ivpb) 10 meq in 100 mls @ 100 mls/hr IV X1 ONE Stop: 04/01/25 21:33 Last Infusion: 04/01/25 21:54 Dose: Infused Lactated Ringer's (Lactated Ringers) 1,000 mls @ 999 mls/hr IV .Q1H1M ONE Stop: 04/02/25 01:23 Last Infusion: 04/02/25 02:14 Dose: Infused Lactated Ringer's (Lactated Ringers) 1,000 mls @ 999 mls/hr IV .Q1H1M ONE Stop: 04/02/25 01:26 Last Infusion: 04/02/25 02:14 Dose: Infused Potassium Chloride (Kcl Ivpb) 10 meq in 100 mls @ 100 mls/hr IV Q1H GINNY Stop: 04/02/25 10:39 Last Admin: 04/02/25 11:34 Dose: 100 mls/hr Magnesium Sulfate (Magnesium Sulfate Ivpb) 2 gm in 50 mls @ 25 mls/hr IV X1 ONE Stop: 04/02/25 09:41 Last Admin: 04/02/25 08:47 Dose: 25 mls/hr Acetaminophen (Ofirmev Inj) 1,000 mg in 100 mls @ 250 mls/hr IV Q6HR PRN PRN Reason: Pain 1-8 Stop: 04/03/25 06:23 Last Infusion: 04/02/25 19:00 Dose: Infused Lactated Ringer's (Lactated Ringers) 1,000 mls @ 999 mls/hr IV .Q1H1M ONE Stop: 04/02/25 14:47 Last Admin: 04/02/25 13:59 Dose: 999 mls/hr Potassium Phosphate (Pot Phos 15 Mmol In Ns 250 Ml) 15 mmol in 250 mls @ 62.5 mls/hr IV Q4H ONE Stop: 04/02/25 19:21 Last Admin: 04/02/25 15:58 Dose: 62.5 mls/hr Potassium Chloride (Kcl Ivpb) 20 meq in 100 mls @ 50 mls/hr IV X1 ONE Stop: 04/02/25 17:21 Potassium Chloride (Kcl Ivpb) 100 mls @ 100 mls/hr IV Q1H GINNY Stop: 04/02/25 17:29 Last Admin: 04/02/25 17:14 Dose: 80 mls/hr Influenza Virus Vaccine Quadrival (Influenza Virus Quadrivalent 0.5 Ml Syringe) 0.5 ml IMi .ONCE ONE Stop: 04/02/25 04:53 Lactulose (Lactulose Syrup 20 Gm/30 Ml Udc) 20 gm PO X1 ONE; Protocol Stop: 04/02/25 01:58 Last Admin: 04/02/25 02:10 Dose: Not Given Lorazepam (Lorazepam 0.5 Mg Tablet) 2 mg PO Q8HR PRN PRN Reason: ANXIETY Stop: 04/07/25 00:25 Lorazepam (Lorazepam 0.5 Mg Tablet) 2 mg PO Q6HR PRN PRN Reason: ANXIETY Stop: 04/07/25 00:25 Lorazepam (Lorazepam 0.5 Mg Tablet) 0.5 mg PO X1 ONE Stop: 04/03/25 08:21 Last Admin: 04/03/25 08:26 Dose: 0.5 mg Losartan Potassium (Losartan Potassium 25 Mg Tablet) 25 mg PO QDAY GINNY Stop: 05/02/25 08:59 Last Admin: 04/02/25 08:51 Dose: 25 mg Melatonin (Melatonin 3 Mg Tablet) 3 mg PO HS GINNY Stop: 05/03/25 20:59 Metoclopramide HCl (Metoclopramide Inj 5 Mg/Ml Vial 2 Ml) 10 mg IVP Q6HR PRN; Protocol PRN Reason: NAUSEA OR VOMITING Stop: 05/02/25 00:25 Metoclopramide HCl (Metoclopramide 5 Mg Tablet) 5 mg PO Q6HR PRN PRN Reason: NAUSEA OR VOMITING Stop: 05/02/25 00:34 Metoprolol Tartrate (Metoprolol Tartrate Inj 1 Mg/Ml Amp 5 Ml) 5 mg IVP X1 ONE Stop: 04/01/25 18:50 Last Admin: 04/01/25 19:44 Dose: 5 mg Midazolam HCl (Midazolam Inj 1 Mg/Ml Vial 2 Ml) 2 mg IVP X1 ONE Stop: 04/01/25 13:40 Last Admin: 04/01/25 13:54 Dose: 2 mg Midazolam HCl (Midazolam Inj 1 Mg/Ml Vial 2 Ml) 2 mg IVP X1 ONE Stop: 04/01/25 14:11 Last Admin: 04/01/25 14:20 Dose: Not Given Midazolam HCl (Midazolam Inj 1 Mg/Ml Vial 2 Ml) 4 mg IVP X1 ONE Stop: 04/01/25 14:14 Last Admin: 04/01/25 14:21 Dose: 4 mg Midazolam HCl (Midazolam Inj 1 Mg/Ml Vial 2 Ml) 4 mg IVP X1 ONE Stop: 04/01/25 14:34 Last Admin: 04/01/25 14:44 Dose: 4 mg Midazolam HCl (Midazolam Inj 1 Mg/Ml Vial 2 Ml) 2 mg IVP X1 ONE Stop: 04/01/25 16:52 Midazolam HCl (Midazolam Inj 1 Mg/Ml Vial 2 Ml) 4 mg IVP X1 ONE Stop: 04/01/25 16:52 Last Admin: 04/01/25 17:22 Dose: 4 mg Nifedipine (Nifedipine 10 Mg Capsule) 10 mg PO X1 ONE Stop: 04/02/25 03:24 Ondansetron HCl (Ondansetron Inj 2 Mg/Ml Inj 2 Ml) 4 mg IVP X1 ONE; Protocol Stop: 04/01/25 13:50 Last Admin: 04/01/25 14:01 Dose: 4 mg Ondansetron HCl (Ondansetron Inj 2 Mg/Ml Inj 2 Ml) 4 mg IVP X1 ONE; Protocol Stop: 04/01/25 20:17 Last Admin: 04/01/25 20:22 Dose: 4 mg Pantoprazole Sodium (Pantoprazole 40 Mg Tablet) 40 mg PO QDAY GINNY Stop: 05/02/25 08:59 Last Admin: 04/02/25 08:52 Dose: 40 mg Pantoprazole Sodium (Pantoprazole Inj 40 Mg Vial) 40 mg IVP QDAY GINNY Stop: 05/02/25 09:44 Last Admin: 04/02/25 10:00 Dose: 40 mg Potassium Chloride (Potassium Chloride 20 Meq Tabcr) 40 meq PO X1 ONE Stop: 04/01/25 20:08 Last Admin: 04/01/25 20:53 Dose: Not Given Sennosides (Senna Tablet) 1 tab PO QDAY GINNY; Protocol Stop: 05/02/25 08:59 Last Admin: 04/02/25 08:47 Dose: 1 tab Assessment & Plan Plan 29 y/o M with PMHx polysubstance abuse admitted to hospital for intractable nausea/vomiting, currently remains for treatment for severe benzodiazepine withdrawal. ICU team consulted to eval for need for Precedex drip. Neuro: #Acute encephalopathy #Benzodiazepine withdrawal Patient severely agitated, uncooperative. Currently on CIWA protocol as managed by floor team. Has history of benzodiazepine abuse, U tox positive for benzos. Patient in telemetry overflow in ICU. Patient had multiple code margoth/rapid Responses due to agitation. - Patient received 27.5 diazepam and 520 phenobarbital today - CIWA protocol with Valium - Management as per hospitalist team - [facility]asure - If patient remains significantly agitated, may initiate Precedex drip Cardio: #Hypertension Patient is no known history of hypertension. Multiple BP read was significantly elevated. Suspect due to underlying agitation, associated with tachycardia. - Not currently on active treatment - Treat agitation secondary to benzodiazepine withdrawal as above Respiratory: No active issues. GI: #Intractable nausea/vomiting (resolved) Patient presented with intractable nausea/vomiting. Concern for cannabis hyperemesis syndrome in setting of frequent THC use. Symptoms are mostly resolved at this point. - Topical Capsaicin - Zofran as needed - Metoclopramide as needed Renal: No active issues. Heme/Onc: #Leukocytosis (improving) Patient presented with elevated leukocytes, downtrending. Suspect reactive in the setting of intractable nausea/vomiting - Treat underlying conditions as above Endocrine: No active issues. Skin/MSK: No active issues. DVT prophylaxis: Heparin GI prophylaxis: Protonix Diet: [place] diet Lines: Peripheral IV Code status: Full code Plan of care discussed with attending nursing professor Dr. Perales. Sarthak Elmore MD PGY?2
[2025-04-03] MEDS: DEXMEDETOMIDINE 400 MCG IVPB 400 MCG/100 ML BAG 29.37 MCG IV (20:43)
--- NOTE | 2025-04-03 21:11 | PC.NURSE ---
pt sitting on edge of bed attempting to get up and pushing against RN and family member, ita knapp called. pt brought back to bed and this RN explained that we will have to place soft wrist restraints to bilateral wrist for his, family members and staff safety. pt started thrashing, kicking, and screaming stating i dont want to be restrained, i made a deal when coming here that i will not be restrained . 50mg IM benadryl, 5mg IM haldol, precedex drip started. After a few minutes patient became more compliant and relaxed. all restraints removed based on patients compliance. At end of ita knapp, pt stated that arts administrator or manager said that shes gonna tie my ass down and she was very unprofessional
--- NOTE | 2025-04-03 21:19 | PD.RESEVENT ---
Documentation for date of: 04/03/25 Event Note Event Note: CODE IRENA called at 20:44 Patient was combative and yelling. Patient was given Haldol 5mg 1 + Benadryl 50mg x1 Commenced Precedex gtt at 2100 - Emergency titration protocol starting at 1.4, to be titrated down to maintain RAAS -1 - Ben Marshall M.D. PGY3
[2025-04-03] MEDS: HALOPERIDOL LACT INJ 5 MG/ML VIAL IM (21:21)
[2025-04-03] MEDS: RINGERS LACTATED 1000 ML 1,000 ML 999 ML IV (22:28)
[2025-04-03] MEDS: RINGERS LACTATED 500 ML 500 ML 80 ML IV (23:37)
[2025-04-04] VITALS (65 sets, daily range): BP systolic 59–144; BP diastolic 37–89; PULSE 53–98; RESP 4–26; TEMP 36.1–37.7; O2SAT 94–100
[2025-04-04] MEDS: DEXMEDETOMIDINE 400 MCG IVPB 400 MCG/100 ML BAG 8.392 MCG IV (02:00)
[2025-04-04] MEDS: HEPARIN SOD INJ 5000 UNIT/ML VIAL SC ×3 (05:27→21:34)
[2025-04-04] MEDS: RINGERS LACTATED 500 ML 500 ML 999 ML IV (05:28)
[2025-04-04 06:11] LABS: Basophils # (Auto) 0.1 Thou/mm3 (0.0-0.2); Basophils % (Auto) 0 % (0-2.5); Eosinophils # (Auto) 0.1 Thou/mm3 (0.0-0.5); Eosinophils % (Auto) 0 % (0-10); Hematocrit 37.8 % (41.0-53.0); Hemoglobin 13.0 g/dL (13.5-16.0); Immature Granulocytes Auto 0.04 Thou/mm3 (0.00-0.00); Lymphocytes # (Auto) 4.3 Thou/mm3 (1.0-4.8); Lymphocytes % (Auto) 33 % (10-50); Mean Corpuscular HGB Conc 34.4 g/dl (31.0-37.0); Mean Corpuscular Hemoglobin 29.0 pg (25.0-35.0); Mean Corpuscular Volume 84 fL (80-100); Monocytes # (Auto) 1.2 Thou/mm3 (0.0-0.8); Monocytes % (Auto) 9 % (0-12); Neutrophils # (Auto) 7.6 Thou/mm3 (1.8-7.7); Neutrophils % (Auto) 58 % (37-80); Nucleated Red Blood Cell # 0.00 Thou/mm3 (0.00-0.00); Nucleated Red Blood Cell % 0 /100 WBC (0); Platelet Count 245 Thou/mm3 (140-440); RDW Standard Deviation 42.5 fL (35.1-43.9); Red Blood Count 4.48 Miln/mm3 (4.50-5.90); White Blood Count 13.2 Thou/mm3 (3.8-10.6)
[2025-04-04 06:33] LABS: Alanine Aminotransferase 25 U/L (10-49); Albumin, Serum 3.9 gm/dL (3.5-5.0); Albumin/Globulin Ratio 2.0 (1.2-2.2); Alkaline Phosphatase 69 U/L (46-116); Anion Gap 9 (7-16); Aspartate Amino Transferase 49 U/L (0-34); BUN/Creatinine Ratio 12 Ratio (12-20); Bilirubin,Total 0.7 mg/dL (0.3-1.2); Blood Urea Nitrogen 12 mg/dL (9-23); Calcium 8.4 mg/dL (8.3-10.6); Calcium (Corrected) 8.5 mg/dL (8.5-10.1); Carbon Dioxide 27.3 mMol/L (20.0-31.0); Chloride 104 mMol/L (98-107); Creatinine (Component) 1.0 mg/dL (0.6-1.3); Estimated Creatinine Clearance 100.1 mL/min (>60); Globulin 2.0 gm/dL (2.3-3.5); Glucose 100 mg/dL (74-106); Magnesium 2.4 mg/dL (1.6-2.6); Osmolality,Calculated 279 (275-295); Phosphorous 3.4 mg/dL (2.4-5.1); Potassium 3.5 mMol/L (3.4-5.1); Sodium 140 mMol/L (136-145); Total Protein 5.9 gm/dL (5.7-8.2); eGFR > 60 See Note
--- NOTE | 2025-04-04 07:08 | PD.RESEVENT ---
Documentation for date of: 04/04/25 Event Note Event Note: Patient was started on Precedex gtt. Titrated down to 0.02 aroundmdinight, however patient does not tolerate Precedex well. BP dropped. MAP trending 52-61 despite being on lowest dose of Precedex Turned Precedex off around 5am due to recurrent drop in MAP. Gave patient 1.5 L in bolus + 500cc maintenance overnight. MAP maintaining >60 by the time of AM sign out. Day team advised to look for other etiology as this is unlikely to be Benzo or Cocaine withdrawal only. Marge has a concomitant issue. Patient has an extensive Psych history. Symptoms appear to be due to another etiology such as PCP, street drugs can have contaminants. Advised f/u with lab to check what other tox panels can be done. - Ben Marshall M.D. PGY3 Disclaimer: Minor errors in seismic prospecting supervisor may be present as this note was dictated using voice recognition software.
[2025-04-04] MEDS: RINGERS LACTATED 1000 ML 1,000 ML 999 ML IV ×2 (07:32→10:55)
[2025-04-04] MEDS: PANTOPRAZOLE 40 MG TABLET PO (09:40)
[2025-04-04] MEDS: DIAZEPAM INJ 5 MG/ML VIAL 2 ML 2.5 MG IVP ×3 (14:08→21:31)
--- NOTE | 2025-04-04 14:35 | ESPR_ITS ---
<Statement entered by Sarthak Elmore MD - 04/04/25 17:44> Patient seen and examined at bedside. I discussed and supervised with the marketing pr intern physician who took care of this patient. I personally saw and examined the patient. I agree with most of the assessment and plan. Patient was upgraded to ICU overnight for Precedex drip given extreme agitation, combativeness despite high doses of phenobarbital and diazepam. Patient had episodes of hypotension overnight, Precedex was rapidly down titrated, patient received multiple fluid boluses with improvement in blood pressure. Today, patient was initially lethargic, but showed improvement that the day. Patient alerts, calm, cooperative, conversing well. Patient remains on CIWA protocol due to recent significant agitation. Will continue to monitor the patient in ICU due to multiple episodes of significant hypotension with MAP below 65, potential downgrade tonight/tomorrow depending on blood pressure. Plan of care discussed with attending Dr. Perales. Sarthak Elmore MD PGY-2 Documentation for date of: 04/04/25 Subjective Subjective Interval history: 29-year-old male with a history of anxiety, currently taking clonazepam (per admission note), presented to the ED on 04/02/2025 for approximately 10 episodes of nonbloody, nonbilious vomiting in one day. Patient was treated with metoclopramide for cannabis hyperemesis syndrome, given a history of similar symptoms attributed to cannabis use. The patient also had an acid-base imbalance, which was successfully corrected and managed by the primary team. The patient was cleared for discharge, but upon receiving his discharge instructions, he became extremely agitated after being instructed to discontinue the clonazepam. He started shouting, thrashing around the bed, and threatening staff members. Multiple Code Margoth were called. Patient was treated with hydroxyzine, Benadryl, and melatonin. CIWA protocol was initiated due to suspected benzodiazepine withdrawal. ICU was consulted to assess the need for Precedex infusion due to the patient's severe and persistent agitation. ICU Course: Overnight, patient became combative and continued yelling. He was administered Haldol 5 mg and Benadryl 5 mg. Precedex infusion was started at 2100 and titrated down to 0.02 mcg/kg/hr by midnight. However, the patient did not tolerate Precedex well, with hypotension developing (MAP ranging from 52 to 61 mmHg), despite the low dose. Due to ongoing drops in MAP, the Precedex infusion was discontinued at 0500. The patient was given 1.5L of LR bolus plus 500 mL maintenance fluids overnight. 04/04/2025: By morning, the patient's MAP was maintained above 60 mmHg, but there was no urine output overnight. At 0745, the patient's blood pressure dropped to 64/39 mmHg, and an additional bolus of LR was administered. Given the continued hypotension, NICOM was used, which indicated that the patient was fluid- responsive. Another 1L LR was given. Since his blood pressure continues to be low, will stay in ICU. The last CIWA score was 11. Exam Vital Signs Temp Pulse Resp BP Pulse Ox O2 Del Method 97 F 66 19 75/49 L 97 Room Air 04/04/25 08:01 04/04/25 11:00 04/04/25 11:00 04/04/25 11:00 04/04/25 11:00 04/03/25 17:13 Narrative Exam Physical Exam General: Sleeping comfortably in bed. Not agitated or anxious. HEENT: Normocephalic, atraumatic. Heart: Regular rate and rhythm, no murmurs. Non-labored respirations, symmetric chest rise, no use of accessory muscles. Lungs: Clear to auscultation with no wheezing or crackles. Abdomen: Soft, nondistended, nontender. No guarding or rebound tenderness. Neurologic: Alert and oriented x2, no gross neurological deficit, and patient able to move all 4 extremities. Extremities: No edema. Skin: No rash or ecchymoses. Tattoos. Psychiatric: unable to assess as patient wanted to keep sleeping. Objective Labs 04/05/25 04:49 04/05/25 04:49 Labs: Laboratory Results - last 24 hr 04/04/25 05:00 WBC 13.2 H RBC 4.48 L Hgb 13.0 L Hct 37.8 L MCV 84 MCH 29.0 MCHC 34.4 RDW Std Deviation 42.5 Plt Count 245 D Neut % (Auto) 58 Lymph % (Auto) 33 [place] % (Auto) 9 Eos % (Auto) 0 Baso % (Auto) 0 Neut # (Auto) 7.6 Lymph # (Auto) 4.3 [place] # (Auto) 1.2 H Eos # (Auto) 0.1 Baso # (Auto) 0.1 Immature Gran # (Auto) 0.04 H Absolute Nucleated RBC 0.00 Immature Gran % 0 Nucleated RBC % 0 Sodium 140 Potassium 3.5 Chloride 104 Carbon Dioxide 27.3 Anion Gap 9 BUN 12 Creatinine 1.0 Estim Creat Clear Calc 100.1 eGFR > 60 BUN/Creatinine Ratio 12 Glucose 100 Calculated Osmolality 279 Calcium 8.4 Corrected Calcium 8.5 Phosphorus 3.4 Magnesium 2.4 Total Bilirubin 0.7 AST 49 H ALT 25 Alkaline Phosphatase 69 Total Protein 5.9 Albumin 3.9 Globulin 2.0 L Albumin/Globulin Ratio 2.0 ABG Interpretation ABG results: 04/01/25 04/02/25 21:08 04:40 ABG pH 7.52 H ABG pCO2 27 L ABG pO2 103 ABG HCO3 22 ABG O2 Saturation 99 H ABG Base Excess 0 VBG pH 7.45 VBG pCO2 33 L VBG pO2 99 H VBG Base Excess -1 Quality Measures Quality Measures VTE prophylaxis Assessment & Plan Assessment Current Active Medications: Generic Name Dose Route Start Last Admin Trade Name Freq PRN Reason Stop Dose Admin Capsaicin 0 gm 04/02/25 12:00 04/04/25 11:19 Capsaicin Cr 60 Gm Tube TOP 05/02/25 11:59 Not Given QID GINNY Diazepam 2.5 mg 04/03/25 15:16 04/04/25 14:08 Diazepam Inj 5 Mg/Ml Vial 2 Ml IVP 04/08/25 15:15 2.5 mg Q2HR PRN Administration CIWA SCORE 8-13 Diazepam 5 mg 04/03/25 15:16 04/03/25 19:51 Diazepam Inj 5 Mg/Ml Vial 2 Ml IVP 04/08/25 15:15 5 mg Q2HR PRN Administration CIWA SCORE 14-19 Diazepam 10 mg 04/03/25 15:16 04/03/25 20:25 Diazepam Inj 5 Mg/Ml Vial 2 Ml IVP 04/08/25 15:15 10 mg Q2HR PRN Administration CIWA SCORE 20-25 Heparin Sodium (Porcine) 5,000 unit 04/02/25 06:00 04/04/25 14:20 Heparin Sod Inj 5000 Unit/Ml Vial SC 04/16/25 05:59 5,000 unit Q8HR GINNY Administration Dexmedetomidine/Sodium Chloride 400 mcg in 100 mls @ 4.196 mls/hr 04/03/25 20:36 04/04/25 05:00 Precedex Ivpb IV 05/03/25 20:35 0 mcg/kg/hr .[id number] PRN 0 mls/hr Per PROTOCOL Titration Protocol 0.2 MCG/KG/HR Metoclopramide HCl 10 mg 04/02/25 09:35 04/02/25 13:40 Metoclopramide Inj 5 Mg/Ml Vial 2 Ml IVP 05/02/25 09:34 10 mg Q6HR PRN Administration NAUSEA OR VOMITING Protocol Ondansetron HCl 4 mg 04/02/25 00:24 04/03/25 19:46 Ondansetron Inj 2 Mg/Ml Inj 2 Ml IVP 05/02/25 00:23 4 mg Q6HR PRN Administration NAUSEA OR VOMITING Protocol Pantoprazole Sodium 40 mg 04/03/25 09:00 04/04/25 09:40 Pantoprazole 40 Mg Tablet PO 05/03/25 08:59 40 mg QDAY GINNY Administration Plan 29 year-old male with history of polysubstance abuse admitted to hospital for intractable nausea/vomiting, currently remains for treatment for severe benzodiazepine withdrawal. Admitted to ICU team for Precedex drip. Neurology #Acute encephalopathy #Benzodiazepine withdrawal Patient was severely agitated and uncooperative. Multiple code margoth with rapid response team due to agitation. Diagnostic Test: - Urine toxicology positive for benzos, cocaine and THC. Treatment Plan: - Continue CISD protocol (last CIWA was ). Treatment Review: - Diazepam 2.5 mg x1. - Diazepam 5mg x1. - Diazepam 10 mg x2. - Phenobarbital 260 mg. - Phenobarbital 130 mg x2. - Precedex started 04/03 at 2100. Drip titrated down to 0.02 around midnight. Patient's blood pressure started to drop with MAP trending 52-61. Precedex was discontinued. Patient received 1.5L and 500cc of LR overnight. Today (04/04), patient has received 1L of LR for his hypotension. Cardiovascular #Hypertension (resolved) On admission, patient was hypertensive. DDx: underlying agitation, secondary to benzodiazepine withdrawal. Patient has no known history of hypertension. Treatment Plan: - Not currently on active treatment. No treatment needed at this moment. #Hypotension Patient became hypotensive after Precedex was started. Diagnostic Test: - NICOM: indicated that the patient was fluid-responsive with change SVI of 13.4%. - Baseline: SVI 46/SV 86.0/Cl 2.5/CO 4.7. - After passive leg raise: SVI 50/SV 93.7/Cl 2.6/CO 4.8. Treatment Review: - Discontinued Precedex. - Received 1L and 500cc LR overnight for MAP 52-61. - Received 1L LR x2. MAP 44 at 2pm today. Respiratory #no active problems GI and F/E/N #Intractable nausea/vomiting (resolved) Likely secondary to cannabis hyperemesis syndrome given history of requent THC use. Treated with Metoclopramide by primary team. Treatment Plan: - Zofran as needed. - Metoclopramide as needed. Renal #no active problems Heme #Leukocytosis DDx: suspect reactive in the setting of intractable nausea/vomiting. Diagnostic Test: - WBC 16.2 -- 16.1 --> 10.9 --> 13.2. Treatment Plan: - Treat underlying condition as above. Endo #no active problems ID #no active problems Health Maintenance DVT prophylaxis: heparin 5000 SC GI prophylaxis: Protonix Diet: bland diet Lcuas: none Lines: Peripherals Vent: none CODE STATUS: FULL CODE Patient discussed with my senior resident Dr. Elmore and attending, Dr. Perales. Sheila Luu DO, PGY 1 Attending Provider Attestation/Addendum Patient seen and examined with resident. Agree with above. In brief is a 29-year-old male admitted to the ICU for withdrawal. He required Precedex drip. Overnight he was hypotensive requiring some fluid bolus. Today he wakes up and is calm and conversant. He has received additional fluid bolus for some intermittent hypotension which has responded well to IV fluids. He is off of the Precedex drip. Will monitor his vitals for the next several hours and if he remains stable he will be downgraded to the floor team. Case discussed with ICU team Labs, imaging records reviewed Approximately 30 minutes required for evaluation, exam, review, dimension, discussion formulation of plan of care for this patient.
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
--- NOTE | 2025-04-04 16:01 | PC.SS ---
Update: Patient in possession of soft blood pressure, CIWA protocal in place. Patient has received 1 dose of Valium today. GERD/bland diet in place.
[2025-04-04 20:34] LABS: Chloride,Urine Random 108.0 mMol/L (55.0-125.0); Potassium,Urine Random < 10 mMol/L (12-62); Sodium,Urine Random 137.0 mMol/L (20.0-110.0)
[2025-04-05] VITALS (15 sets, daily range): BP systolic 93–134; BP diastolic 65–100; PULSE 66–98; RESP 16–20; TEMP 36.4–36.8; O2SAT 92–100
[2025-04-05 05:32] LABS: Basophils # (Auto) 0.0 Thou/mm3 (0.0-0.2); Basophils % (Auto) 0 % (0-2.5); Eosinophils # (Auto) 0.1 Thou/mm3 (0.0-0.5); Eosinophils % (Auto) 2 % (0-10); Hematocrit 38.3 % (41.0-53.0); Hemoglobin 13.2 g/dL (13.5-16.0); Immature Granulocytes Auto 0.03 Thou/mm3 (0.00-0.00); Lymphocytes # (Auto) 3.8 Thou/mm3 (1.0-4.8); Lymphocytes % (Auto) 42 % (10-50); Mean Corpuscular HGB Conc 34.5 g/dl (31.0-37.0); Mean Corpuscular Hemoglobin 28.7 pg (25.0-35.0); Mean Corpuscular Volume 83 fL (80-100); Monocytes # (Auto) 0.8 Thou/mm3 (0.0-0.8); Monocytes % (Auto) 9 % (0-12); Neutrophils # (Auto) 4.3 Thou/mm3 (1.8-7.7); Neutrophils % (Auto) 47 % (37-80); Nucleated Red Blood Cell # 0.00 Thou/mm3 (0.00-0.00); Nucleated Red Blood Cell % 0 /100 WBC (0); Platelet Count 242 Thou/mm3 (140-440); RDW Standard Deviation 41.3 fL (35.1-43.9); Red Blood Count 4.60 Miln/mm3 (4.50-5.90); White Blood Count 9.1 Thou/mm3 (3.8-10.6)
[2025-04-05 06:00] LABS: Alanine Aminotransferase 45 U/L (10-49); Albumin, Serum 4.2 gm/dL (3.5-5.0); Albumin/Globulin Ratio 2.1 (1.2-2.2); Alkaline Phosphatase 77 U/L (46-116); Anion Gap 11 (7-16); Aspartate Amino Transferase 83 U/L (0-34); BUN/Creatinine Ratio 11 Ratio (12-20); Bilirubin,Total 0.6 mg/dL (0.3-1.2); Blood Urea Nitrogen 9 mg/dL (9-23); Calcium 8.9 mg/dL (8.3-10.6); Calcium (Corrected) 8.9 mg/dL (8.5-10.1); Carbon Dioxide 26.4 mMol/L (20.0-31.0); Chloride 104 mMol/L (98-107); Creatinine (Component) 0.8 mg/dL (0.6-1.3); Estimated Creatinine Clearance 125.1 mL/min (>60); Globulin 2.0 gm/dL (2.3-3.5); Glucose 97 mg/dL (74-106); Magnesium 2.3 mg/dL (1.6-2.6); Osmolality,Calculated 279 (275-295); Phosphorous 4.2 mg/dL (2.4-5.1); Potassium 3.3 mMol/L (3.4-5.1); Sodium 141 mMol/L (136-145); Total Protein 6.2 gm/dL (5.7-8.2); eGFR > 60 See Note
[2025-04-05] MEDS: HEPARIN SOD INJ 5000 UNIT/ML VIAL SC (06:28)
[2025-04-05] MEDS: DIAZEPAM INJ 5 MG/ML VIAL 2 ML 2.5 MG IVP (06:28)
[2025-04-05] MEDS: PANTOPRAZOLE 40 MG TABLET PO (09:02)
[2025-04-05] MEDS: POTASSIUM CHL 10 mEq IVPB 10 MEQ/100 ML BAG 100 MEQ IV ×3 (09:02→10:53)
--- NOTE | 2025-04-05 10:17 | PC.SS ---
SS follow up note; CIWA high and being monitored. Patient will discharge back home when medically cleared.
--- NOTE | 2025-04-05 13:29 | EVENTNT_ITS ---
<Statement entered by Kyle Antonio MD - 04/05/25 16:10> Patient was informed about their current medical condition and the reasons requiring hospitalization and administration of medication. ? The patient was also informed regarding the risks of leaving AGAINST MEDICAL ADVICE, which include deterioration of current condition which could result in worsening symptoms and ultimately could even result in . The patient was able to clearly communicate an understanding of their medical condition back to me. I asked the patient if they are able to explain to me what might happen if they leave the hospital right now and they were able to clearly communicate the risks attributed to their medical condition that could result in further deterioration / bodily harm. The patient was able to explain the reasons that led to their decision for them to leave AGAINST MEDICAL ADVICE in a clear logical manner. I did ask the patient if there is anything that I, or other staff members could do to help improve their experience in the hospital that would allow them to reconsider remaining in the hospital receiving medical care. ?I also asked the patient if there were any family or friends that we could contact to help the patient reconsider their decision to leave the hospital. The patient denied severe depression influencing their decision making capacity. ?The patient denied suicidal ideation. ? The patient denied any extreme extenuating circumstances outside of the hospital that we could help with, this did not change their mind about leaving the hospital. ?The patient reports having access to their home medications and was willing to allow us to prescribe additional medications to their pharmacy. Plan of care discussed with Attending Dr. Ru Antonio MD PGY 2 Disclaimer: This note was dictated by speech recognition. Minor errors in typewriter aligner may be present due to voice recognition software. Documentation for date of: 04/05/25 Event Note Event Note: The patient has decided to sign out against medical advice (AMA) after being explained the risks & benefits of leaving before medical clearance/discharge. The patient had the opportunity to ask questions about their condition which were answered to their satisfaction; the patient is aware that they may return for further care at any time as needed. Patient was alert and oriented x4 with ability to demonstrate understanding of the above and signed the AMA form.
--- NOTE | 2025-04-05 13:29 | ESDS_ITS ---
<Statement entered by Toñito Vences MD - 04/09/25 12:13> I reviewed above note and agree with findings and plans. I have also personally examined the patient with medicine team and went over assessment and plan with medical team including international flight attendant and resident physician. <Statement entered by Kyle Antonio MD - 04/05/25 18:23> I saw and examined patient personally and supervised PGY 1 resident, Dr. Kramer with formulating a management plan. I agree with the documentation with the exceptions as listed below. Patient is a 29-year-old male past medical history significant for anxiety who initially presented with intractable nausea and vomiting which has since resolved after IV Zofran and metoclopramide. During hospitalization he develop ed symptoms of acute agitation secondary to benzodiazepine withdrawals for which she received a total of diazepam 27.5 mg IV, phenobarbital 520 mg IV after which she was upgraded to the ICU for Precedex infusion. He remained in the ICU overnight after which he was weaned off of Precedex 04/04. Today patient expressed his desire to leave and even after extensive counseling as he was not safe to be discharged. He displayed capacity and left the hospital AGAINST MEDICAL ADVICE. See event note for further details. Problem list: 1. Agitation secondary to benzodiazepine withdrawal?resolving 2. History of anxiety 3. Polysubstance use Plan of care discussed with Attending Dr. Ru Antonio MD PGY 2 Disclaimer: This note was dictated by speech recognition. Minor errors in hand clerical verifier may be present due to voice recognition software. Planned Discharge Date 04/05/25 DS: Providers Provider Date of admission: 04/02/25 00:44 Primary care physician: Physician No Primary/Family Admitting Provider: Martir Taylor MD Attending Provider on Admission: Toñito Vences MD Consults: 04/03/25 17:28 Consult to Systematic Theology Professor Routine Comment: Benzos withdrawls Consulting Provider: Gabi Perales Attending Provider on DC: Toñito Vences MD Discharging Provider: Toñito Vences MD DS: Diagnosis Problem List Completed Was Problem List Reviewed/Reconciled?: Yes Hospital Course Hospital Course Hospital course: This is a 29 year old male presented with multiple episodes of vomiting. He was admitted for Intractable vomiting f/t/h acid base anomaly. In the ED he was hypertensive with leukocytosis with left shift and hypokalemia. ABG PH:7.52 , Pco2:27mm Hg ,HCo3:11.3. Total CK:314. Urine analysis : Ketones 3+.Head CT negative for any bleed. Urine Drug Screen positive for Benzos, Cocaine and Marijuana. Given Ringer lactate 2 litres, Hydralazine 20 mg & 2mg, Hydroxyzine:10mg, Haloperidol :5mg, Kcl :40Meq tab and in IV fluid, Midazolam. In the hospital his nausea and vomiting resolved with zofran, reglan, and capsaicin. His acid base anomaly resolved with IV fluids. At some point he experienced a panic attack or an acute withdrawal of unknown substance. He was upgraded to the ICU due to the amount of phenobarbital given and started on precedex drip. He was held due to low BPs which resolved with 1.5L bolus + 500cc.. Then downgraded once deemed stable with CIWA protocols. Patient reqested to leave AMA. Was explained that he was not safe to discharge, adn after extensive conversation of risks where capacitance was assessed and proven patient left AMA. Discharge Instructions: - You have been started on a medication ondansetron for your nausea. Take one tablet eveyr 6 hours as needed - Given your with draws from Clonazepam/Benzodiaepines please continue - Follow up with your primary care physician within 1 week of discharge. If you do not have a primary care physician, please follow up with the [facility] Residents clinic ([phone]) ? If you experience any new, worsening or persistent symptoms either call your primary doctor, or dial 911 or present to the emergency department. #Altered mental status secondary to ?withdrawal of unknown substance? #Polysubstance abuse #?Pyschosomatic agitation? #Panic Attack #PTSD #Depression #Anxiety #Intractable Nausea and Vomiting most likely 2/2 - Resolved #Cannabis Hyperemesis Syndrome - Resolved #Acid Base Imbalance - resolved #Metabolic alkalosis in setting of vomiting #Respiratory alkalosis in setting of anxiety and hyperventilation #Metabolic acidosis possibly in setting of starvation ketosis #HyperCkemia #Constipation #Hypertension Patient's plan and care discussed with my attending, Dr. Vences, and supervising resident MD Horace Montenegro MD Internal Medicine PGY-1 Status at Discharge Functional status at discharge: independent ambulation Overall status at discharge: patient is back to baseline Time Spent with Patient Time attestation: Total time spent providing and/or coordinating discharge services: Time spent: Greater than 30 minutes Exam Vital Signs Temp Pulse Resp BP Pulse Ox O2 Del Method 97.9 F 78 18 134/100 H 100 Room Air 04/05/25 11:25 04/05/25 11:25 04/05/25 11:25 04/05/25 11:25 04/05/25 11:25 04/05/25 11:25 Narrative Exam GENERAL: NAD, AAOx3, lethargic, but easily arousable HEENT: Moist mucosa. Eyes open, symmetrical, & clear CARDIO: Heart RRR, no obvious murmurs PULM: No noted coughing/dyspnea CTA B/L, no R/W/R GI: Abdomen soft, nondistended, NTTP. BSx4. No rebound, guarding, or tension. SKIN/MSK/EXT: No wounds/rashes/edema/amputations, no pain on palpation. Pedal pulses present B/L NEURO: AAOx3, no focal neuro deficits, able to move all 4 extremities Discharge Plan Plan Patient Disposition: Left Against Medical Advice Disposition Comment: pt alert and oriented. Patient condition on transfer: Stable Care Plan Goals: - You have been started on a medication ondansetron for your nausea. Take one tablet eveyr 6 hours as needed - Given your with draws from Clonazepam/Benzodiaepines please continue - Follow up with your primary care physician within 1 week of discharge. If you do not have a primary care physician, please follow up with the [facility] Residents clinic ([phone]) ? If you experience any new, worsening or persistent symptoms either call your primary doctor, or dial 911 or present to the emergency department. Prescriptions/Referrals Prescriptions/Med Rec: Continued ondansetron 4 mg tablet,disintegrating 4 mg PO Q6H PRN (Reason: nausea and vomiting) 14 Days Qty: 14 0RF Discontinued metoclopramide HCl [Reglan] 10 mg tablet 10 mg PO Q6H PRN (Reason: nausea and vomiting) Qty: 30 0RF hydroxyzine HCl 50 mg tablet 50 mg PO TID PRN (Reason: anxiety) Qty: 30 0RF metoclopramide HCl [Reglan] 10 mg tablet 10 mg PO Q6H PRN (Reason: nausea and vomiting) Qty: 20 0RF pantoprazole [Protonix] 40 mg tablet,delayed release (DR/EC) 40 mg PO QDAY Qty: 20 0RF clonazepam 1 mg tablet 1 mg PO BID Patient Comments: 1 mg orally twice a day for 4 days Referrals: [facility] [Outside] No Primary/Family,Physician [Primary Care Provider] Patient/Caregiver Discharge Instructions Education Materials: ED Vomiting (Adult) Print Language: Indonesian Quality Discharge Quality Measures VTE prophylaxis
== END 2025-04-05 12:00 | disposition left against medical advice (07) | DRG 249 ==
LOC: SERX 23:13 → SERHOLD 04-02 00:52 → S2NX 04-02 03:44 → S2SX 04-03 15:57 → S3NX 04-05 12:03 → S2SX 04-07 09:58
PROVIDERS: Emergency Medicine; Student in an Organized Health Care Education/Training Program; Admitting Provider Student in an Organized Health Care Education/Training Program; Emergency Provider Emergency Medicine; Visit Provider Internal Medicine
DX: R11.2 Nausea with vomiting, unspecified (principal); F13.239 Sedative, hypnotic or anxiolytic dependence with withdrawal, unspecified; F41.9 Anxiety disorder, unspecified; E87.4 Mixed disorder of acid-base balance; K59.00 Constipation, unspecified; I10 Essential (primary) hypertension; F19.129 Other psychoactive substance abuse with intoxication, unspecified; F14.129 Cocaine abuse with intoxication, unspecified; F12.129 Cannabis abuse with intoxication, unspecified; F13.129 Sedative, hypnotic or anxiolytic abuse with intoxication, unspecified; E87.6 Hypokalemia; R79.89 Other specified abnormal findings of blood chemistry; F14.10 Cocaine abuse, uncomplicated; F12.10 Cannabis abuse, uncomplicated; F17.200 Nicotine dependence, unspecified, uncomplicated; F32.A Depression, unspecified; F43.10 Post-traumatic stress disorder, unspecified; F41.0 Panic disorder [episodic paroxysmal anxiety]; M62.82 Rhabdomyolysis; R11.16 Cannabis hyperemesis syndrome; Z53.29 Procedure and treatment not carried out because of patient's decision for other reasons; Z90.49 Acquired absence of other specified parts of digestive tract; G93.40 Encephalopathy, unspecified
CPT/HCPCS: 36415; 36600; 70450; 74018; 80053; 80069; 80307; 80320; 80329; 81001; 82010; 82140; 82436; 82550; 82803; 83735; 84100; 84133; 84300; 84436; 84443; 84484; 85025; 93005; 93225; 96361; 96365; 96372; 96375; 96376; 99285; A4216; J0131; J0360; J1200; J1630; J1644; J2250; J2405; J2470; J2560; J2765; J3360; J3475; J3480; J3490; J7120; J7999; A9270; G0480